=== PATIENT | female | born 1930 | race Caucasian/White ===

== ENCOUNTER 2017-06-26 04:34 | Emergency (ER) | payer MEDICARE, MEDICAID ==
[~2017-06-26] VITALS: Ht 152.4 cm; Wt 85.0 kg
[~2017-06-26 04:34] MED LIST: ADVAIR DISKU INH; ATEN25TA PO; ATOR80TA45 PO; FURO1TAB60 PO; GABA300C5 PO; IPRASOL INH; LANTUS2P SQ; NOVOLOGSS SQ; OMEP20TA93 PO; POTA10CA PO; SPIRCAP INH; VITA1000 PO
[2017-06-26 04:36] VITALS: BP 175/79; PULSE 100; RESP 16; TEMP 98.5; O2SAT 95
[2017-06-26] MEDS ORDERED: SODIUM CHLORID 0.9% 500 ML INJ 500 ML IV ONE (04:45)
[2017-06-26] MEDS ORDERED: SODIUM CHLORIDE 0.9% FLUSH 10 ML FLUSH IV FLUSH PRN (04:45)
[2017-06-26] MEDS ORDERED: ONDANSETRON HCL 4 MG/2 ML VIAL IVP ONE (04:45)
[2017-06-26] MEDS ORDERED: HYDR-3516 (04:56)
[2017-06-26] MEDS ORDERED: INSU1INJ14 SQ (04:56)
[2017-06-26] MEDS ORDERED: ALLO100T PO (04:56)
[2017-06-26] MEDS ORDERED: ATOR20TA15 PO (04:56)
[2017-06-26] MEDS ORDERED: NITR0.4S SL (04:56)
[2017-06-26] MEDS ORDERED: CONTOUR1 XX (04:56)
[2017-06-26] MEDS ORDERED: TEMA15CA PO (04:56)
[2017-06-26] MEDS ORDERED: VITA500L2 SL (04:56)
[2017-06-26] MEDS ORDERED: HYDR1SOL6 (04:56)
[2017-06-26] MEDS ORDERED: DOCU100C15 PO (04:56)
--- NOTE | 2017-06-26 05:03 | RADRPT ---
EXAM DATE/TIME: 06/26/2017 04:51 [facility] COMPARISON: No previous studies available for comparison. INDICATIONS : Pain in upper abdomen, free air. MEDICAL HISTORY : Cardiovascular disease. Renal failure, chronic. Diabetes mellitus type 2. SURGICAL HISTORY : Cholecystectomy. Appendectomy. ENCOUNTER: Initial ACUITY: 1 day PAIN SCORE: 0/10 LOCATION: Bilateral chest FINDINGS: A single portable erect view of the upper abdomen lower chest was performed. No evidence of free flu id. The visualized lower lungs are clear. Minor degenerative changes in the lumbar spine with right lower thoracic scoliosis. CONCLUSION: No evidence of free air. Lam Varma MD on June 26, 2017 at 5:01 Board Certified Radiologist. This report was verified electronically.
--- NOTE | 2017-06-26 05:15 | PD ---
HPI Chief Complaint: GI Complaint Time Seen by Provider: 04:38 Travel History International Travel<30 days: No Contact w/Intl Traveler<30days: No Traveled to known affect area: No History of Present Illness HPI Patient is an 87-year-old female with history of chronic kidney disease had been on dialysis in the past and then kidneys recovered spontaneously, presents emergency department tonight for evaluation of nausea and vomiting starting after she had dinner last night. States that her abdomen just feels queasy and cramping but not painful. Denies any chest pain or shortness of breath, denies any flank pain but does endorse vaginal discomfort as well as diarrhea. Denies any fevers, she states her symptoms are severe, no emesis during transportation by EMS, context as above, duration is above, associated signs symptoms as above. PFSH Past Medical History Anemia: Yes Arthritis: Yes Asthma: No Autoimmune Disease: No Blood Disorders: Yes (ANEMIA PER PT. ) Anxiety: No Depression: Yes Heart Rhythm Problems: Yes Cancer: No Cardiovascular Problems: Yes (AORTIC VALVE STENOSIS) High Cholesterol: Yes Chemotherapy: No Chest Pain: No Congestive Heart Failure: Yes COPD: Yes Cerebrovascular Accident: No Diabetes: Yes Patient Takes Glucophage: No Dialysis: Yes ([id number]) Diminished Hearing: No Endocrine: Yes Gastrointestinal Disorders: Yes GERD: Yes Glaucoma: No Gout: Yes Genitourinary: Yes Headaches: No Hepatitis: No Hiatal Hernia: No Hypertension: Yes Immune Disorder: No Implanted Vascular Access Dvce: Yes (AV FISTULA L ARM) Kidney Stones: No Musculoskeletal: Yes Neurologic: No Psychiatric: No Reproductive: No Respiratory: Yes Migraines: No Myocardial Infarction: No Radiation Therapy: No Renal Failure: Yes (ACUTE RENAL FAILURE, DAILYSIS 13MOS NOW OFF ) Seizures: No Sickle Cell Disease: No Sleep Apnea: No Thyroid Disease: No Ulcer: Yes (ULCERATIVE STOMACH ) : 4 Para: 3 Miscarriage: 1 Past Surgical History Abdominal Surgery: Yes (APPY, DEJON) AICD: No Appendectomy: Yes Cardiac Surgery: No Cholecystectomy: Yes Ear Surgery: No Endocrine Surgery: No Eye Surgery: Yes (BILATERAL CATARACTS, surgery to correct eye muscle) Genitourinary Surgery: No Gynecologic Surgery: No Insulin Pump: No Joint Replacement: Yes (RIGHT KNEE ) Oral Surgery: No Pacemaker: No Thoracic Surgery: No Other Surgery: Yes Social History Alcohol Use: No Tobacco Use: No Substance Use: No Allergies-Medications (Allergen,Severity, Reaction): Coded Allergies: azithromycin (Unverified Allergy, Severe, Hives, 06/26/17) erythromycin base (Unverified Allergy, Severe, HIVES, 06/26/17) prednisone (Unverified Allergy, Mild, HIVES, 06/26/17) aspirin (Unverified Allergy, Unknown, DECREASE PLATELETS, 06/26/17) diclofenac (Unverified Adverse Reaction, Severe, "LOW PLATELETS" = HIVES, 06/26/17) etodolac (Unverified Adverse Reaction, Severe, "LOW PLATELETS" = HIVES, ) flurbiprofen (Unverified Adverse Reaction, Severe, "LOW PLATELETS" = HIVES , 06/26/17) ibuprofen (Unverified Adverse Reaction, Severe, "LOW PLATELETS" = HIVES, 06/26/17) indomethacin (Unverified Adverse Reaction, Severe, "LOW PLATELETS" = HIVES , 06/26/17) ketoprofen (Unverified Adverse Reaction, Severe, "LOW PLATELETS" = HIVES, 06/26/17) ketorolac (Unverified Adverse Reaction, Severe, "LOW PLATELETS" = HIVES, 06/26/17) naproxen (Unverified Adverse Reaction, Severe, "LOW PLATELETS" = HIVES, ) oxaprozin (Unverified Adverse Reaction, Severe, "LOW PLATELETS" = HIVES, 06/26/17) Reported Meds & Prescriptions Reported Meds & Active Scripts Active Zofran Odt (Ondansetron Odt) 4 Mg Tab 4 Mg SL Q6HR PRN Novolog Inj (Insulin Aspart) 100 Unit/Ml Inj 1 Units SQ ACHS SLIDING SCALE 30 Days USE [place] medium dose sliding Reported Tresiba Flextouch Pen Inj (Insulin Degludec Inj) 300 unit/3 ML Pen 36 Units SQ BID Temazepam 15 Mg Cap 15 Mg PO HS PRN Nitrostat SL (Nitroglycerin) 0.4 Mg Subl 0.4 Mg SL DIRECTED PRN 1 tablet under the tongue as needed for chest pain. Repeat every 5 minutes for a total of 3 DOSES or call 911 if NO relief. Hydrocodone-Acetamin 5-325 mg (Hydrocodone/Acetaminophen) 5 Mg-325 Mg Tablet TID Docusate Sodium 100 Mg Cap 100 Mg PO BID Contour Blood Glucose Test Strip #100 (Blood Glucose Test Strips) Strp 1 Strip XX DIRECTED B-12 (Cyanocobalamin) 500 Mcg Subl 250 Mcg SL DAILY Allopurinol 100 Mg Tab 100 Mg PO DAILY Atorvastatin (Atorvastatin Calcium) 20 Mg Tab 20 Mg PO HS Potassium Chloride ER (Potassium Chloride) 10 Meq Cap 10 Meq PO DAILY Vitamin D-1000 (Cholecalciferol) 1,000 Unit Tab 1,000 Units PO DAILY Gabapentin 300 Mg Cap 300 Mg PO BID Omeprazole 20 Mg Tab 20 Mg PO BID Lasix (Furosemide) 40 Mg Tab 40 Mg PO BID Atenolol 25 Mg Tab 25 Mg PO DAILY Review of Systems Except as stated in HPI: all other systems reviewed are Neg Physical Exam Narrative GENERAL: Well-developed morbidly obese no obvious distress SKIN: Focused skin assessment warm/dry. HEAD: Atraumatic. Normocephalic. EYES: Pupils equal and round. No scleral icterus. No injection or drainage. ENT: No nasal bleeding or discharge. Mucous membranes pink and moist. NECK: Trachea midline. No JVD. CARDIOVASCULAR: Regular rate and rhythm. No murmur appreciated. RESPIRATORY: No accessory muscle use. Clear to auscultation. Breath sounds equal bilaterally. GASTROINTESTINAL: Abdomen soft, non-tender, nondistended. Hepatic and splenic margins not palpable. Tympanic to percussion, no rebound no percussive tenderness, no guarding. Anterior abdominal wall bruising secondary to insulin injections. MUSCULOSKELETAL: No obvious deformities. No clubbing. No cyanosis. No edema. NEUROLOGICAL: Awake and alert. No obvious cranial nerve deficits. Motor grossly within normal limits. Normal speech. PSYCHIATRIC: Appropriate mood and affect; insight and judgment normal. Data Data Last Documented VS Vital Signs Date Time Temp Pulse Resp B/P (MAP) Pulse Ox O2 Delivery O2 Flow Rate FiO2 06/26/17 04:36 98.5 100 16 175/79 (111) 95 Orders Orders Complete Blood Count With Diff (06/26/17 04:38) Comprehensive Metabolic Panel (06/26/17 04:38) Lipase (06/26/17 04:38) Urinalysis - C+S If Indicated (06/26/17 04:38) Iv Access Insert/Monitor (06/26/17 04:38) Ecg Monitoring (06/26/17 04:38) Oximetry (06/26/17 04:38) Ondansetron Inj (Zofran Inj) (06/26/17 04:45) Sodium Chloride 0.9% Flush (Ns Flush) (06/26/17 04:45) Abdomen, Upright Only (06/26/17 04:38) Sodium Chlorid 0.9% 500 Ml Inj (Ns 500 M (06/26/17 04:45) Ct Abd/Pel W/O Iv Contrast (06/26/17 ) Ed Discharge Order (06/26/17 07:04) Electrocardiogram (06/26/17 ) Labs Laboratory Tests Test 06/26/17 05:05 White Blood Count 9.2 TH/MM3 Red Blood Count 4.04 MIL/MM3 Hemoglobin 11.9 GM/DL Hematocrit 36.7 % Mean Corpuscular Volume 90.9 FL Mean Corpuscular Hemoglobin 29.5 PG Mean Corpuscular Hemoglobin Concent 32.5 % Red Cell Distribution Width 16.1 % Platelet Count 136 TH/MM3 Mean Platelet Volume 8.8 FL Neutrophils (%) (Auto) 90.2 % Lymphocytes (%) (Auto) 5.8 % Monocytes (%) (Auto) 3.6 % Eosinophils (%) (Auto) 0.2 % Basophils (%) (Auto) 0.2 % Neutrophils # (Auto) 8.3 TH/MM3 Lymphocytes # (Auto) 0.5 TH/MM3 Monocytes # (Auto) 0.3 TH/MM3 Eosinophils # (Auto) 0.0 TH/MM3 Basophils # (Auto) 0.0 TH/MM3 CBC Comment DIFF FINAL Differential Comment Blood Urea Nitrogen 26 MG/DL Creatinine 1.23 MG/DL Random Glucose 222 MG/DL Total Protein 6.9 GM/DL Albumin 3.2 GM/DL Calcium Level 8.3 MG/DL Alkaline Phosphatase 117 U/L Aspartate Amino Transf (AST/SGOT) 32 U/L Alanine Aminotransferase (ALT/SGPT) 24 U/L Total Bilirubin 0.4 MG/DL Sodium Level 141 MEQ/L Potassium Level 4.7 MEQ/L Chloride Level 103 MEQ/L Carbon Dioxide Level 30.9 MEQ/L Anion Gap 7 MEQ/L Estimat Glomerular Filtration Rate 41 ML/MIN Lipase 31 U/L MDM Medical Decision Making Medical Screen Exam Complete: Yes Emergency Medical Condition: Yes Differential Diagnosis Gastritis, gastroenteritis, electrolyte abnormality, dehydration, acute abdomen unlikely. Narrative Course Patient roomed in emergency department, appears comfortable, fairly benign abdomen but given her age and comorbidities CAT scan will be performed without IV contrast disabled kidney function. Several incidental findings found on CAT scan but nothing acute: Last 24 hours Impressions Abdomen X-Ray 06/26/17 0438 Signed Impressions: Service Date/Time: Monday, June 26, 2017 04:51 - CONCLUSION: No evidence of free air. Lam Varma MD Abdomen/Pelvis CT 06/26/17 0000 Signed Impressions: Service Date/Time: Monday, June 26, 2017 06:25 - CONCLUSION: 1. Several mildly enlarged retroperitoneal para-aortic lymph nodes. 2. 1 cm opacity in the anterior lower lateral left lung is incompletely included in the irehx-[id number] of the exam. Recommend CT thorax without contrast to further characterize this area and to evaluate for pulmonary opacities. Lam Varma MD Labs reassuring, creatinine is minimally elevated but appears to be a patient's baseline. She is feeling more comfortable after Zofran and fluids. Stable for discharge. Diagnosis Primary Impression: Nausea & vomiting Additional Impression: Diarrhea Additional Instructions: There were some lymph nodes present on your cat scan in the abdomen as well as a lung nodule. You should discuss these with your primary care provider within the next week or two. Med/Other Pt SpecificInfo: Prescription(s) given Scripts Ondansetron Odt (Zofran Odt) 4 Mg Tab 4 MG SL Q6HR Y for Nausea/Vomiting, #20 TAB 0 Refills Prov: Pete Rosen MD 06/26/17 Disposition: 01 DISCHARGE HOME Condition: Stable Pete Rosen MD Jun 26, 2017 05:15
[2017-06-26 05:19] LABS: AUTOMATED NEUTROPHIL # 8.3 TH/MM3 (1.8-7.7); BASOPHIL % 0.2 % (0.0-2.0); EOSINOPHIL % 0.2 % (0.0-4.0); HEMATOCRIT 36.7 % (35.0-46.0); HEMO FLAGS DIFF FINAL; LYMPH % 5.8 % (9.0-44.0); LYMPHOCYTE # 0.5 TH/MM3 (1.0-4.8); MEAN CELL VOLUME 90.9 FL (80.0-100.0); MEAN CORPUSCULAR HEMOGLOBIN 29.5 PG (27.0-34.0); MEAN CORPUSCULAR HGB CONC 32.5 % (32.0-36.0); MONO % 3.6 % (0.0-8.0); NEUT % 90.2 % (16.0-70.0); PLATELET COUNT 136 TH/MM3 (150-450); RED BLOOD COUNT 4.04 MIL/MM3 (4.00-5.30); RED CELL DISTRIBUTION WIDTH 16.1 % (11.6-17.2); WHITE BLOOD COUNT 9.2 TH/MM3 (4.0-11.0)
[2017-06-26 05:42] LABS: ANION GAP 7 MEQ/L (5-15); AST (GOT) 32 U/L (15-37); BICARBONATE 30.9 MEQ/L (21.0-32.0); BLOOD UREA NITROGEN 26 MG/DL (7-18); CHLORIDE 103 MEQ/L (98-107); GLOMERULAR FILTRATION RATE 41 ML/MIN (>89); POTASSIUM 4.7 MEQ/L (3.5-5.1); SODIUM (NA) 141 MEQ/L (136-145)
[2017-06-26 05:46] LABS: ALKALINE PHOSPHATASE 117 U/L (45-117); ALT (GPT) 24 U/L (10-53); TOTAL BILIRUBIN ADULT 0.4 MG/DL (0.2-1.0)
[2017-06-26] MEDS ORDERED: ZOFR4TAB3 SL (06:45)
--- NOTE | 2017-06-26 06:58 | RADRPT ---
EXAM DATE/TIME: 06/26/2017 06:25 [facility] COMPARISON: No previous studies available for comparison. INDICATIONS : Abdomen pain. ORAL CONTRAST: No oral contrast ingested. RADIATION DOSE: 15.68 CTDIvol (mGy) MEDICAL HISTORY : Cardiovascular disease. Renal failure, chronic. SURGICAL HISTORY : Cholecystectomy. Appendectomy. ENCOUNTER: Initial ACUITY: 1 day PAIN SCALE: 5/10 LOCATION: Bilateral abdomen. TECHNIQUE: Volumetric scanning of the abdomen and pelvis was performed. Using automated exposure control and ad justment of the mA and/or kV according to patient size, radiation dose was kept as low as reasonably achievable to obtain optimal diagnostic quality images. DICOM format image data is available electro nically for review and comparison. FINDINGS: LOWER LUNGS: There is a focal opacity in the anterior lower lateral left lung new pleural surface, partially inclu ded in the [id number] of the exam. Mild atelectasis in the costophrenic angles. LIVER: Homogeneous density without lesion for noncontrast technique. There is no dilation of the biliary tr ee. Cholecystectomy. SPLEEN: Normal size without lesion. PANCREAS: Diffuse fatty replacement. No peripancreatic fluid collections. KIDNEYS: Normal in size and shape. There is no mass, stone, or hydronephrosis. 1.7 cm cyst exophytic from th e upper pole of the right kidney. ADRENAL GLANDS: Within normal limits. VASCULAR: There is no aortic aneurysm. BOWEL/MESENTERY: No dilated loops of small or large bowel. ABDOMINAL WALL: Within normal limits. RETROPERITONEUM: Several mildly prominent periaortic lymph nodes measuring up to 1.6 cm in size. BLADDER: No wall thickening or mass. REPRODUCTIVE: Within normal limits. INGUINAL: There is no lymphadenopathy or hernia. MUSCULOSKELETAL: Diffuse degenerative changes of the vertebral endplates of the lower thoracic and lumbar spine. CONCLUSION: 1. Several mildly enlarged retroperitoneal para-aortic lymph nodes. 2. 1 cm opacity in the anterior lower lateral left lung is incompletely included in the [id number]-[id number] of the exam. Recommend CT thorax without contrast to further characterize this area and to evaluate for pulmonary opacities. Lam Varma MD on June 26, 2017 at 6:48 Board Certified Radiologist. This report was verified electronically.
--- NOTE | 2017-06-26 13:35 | EKG ---
Date Performed: 06/26/2017 Time Performed: 04:43:41 PTAGE: 87 years EKG: SINUS TACHYCARDIA MILD DIFFUSE ST DEPRESSION WHICH ARE SMILIAR TO THE PRIOR TRACING, CLINIC AL CORRELATION IS NEEDED. ABNORMAL ECG PREVIOUS TRACING : 06/19/2016 19.11 DOCTOR: Negro Ortega Interpretating Date/Time 06/26/2017 13:21:15
== END 2017-06-26 07:55 | disposition home or self-care (01) ==
LOC: NEPC 04:34
DX: R11.2 Nausea with vomiting, unspecified (principal); R19.7 Diarrhea, unspecified; D63.1 Anemia in chronic kidney disease; I12.9 Hypertensive chronic kidney disease with stage 1 through stage 4 chronic kidney disease, or unspecified chronic kidney disease; E11.22 Type 2 diabetes mellitus with diabetic chronic kidney disease; N18.9 Chronic kidney disease, unspecified; M10.9 Gout, unspecified; I13.0 Hypertensive heart and chronic kidney disease with heart failure and stage 1 through stage 4 chronic kidney disease, or unspecified chronic kidney disease; I50.9 Heart failure, unspecified
CPT/HCPCS: 74000; 74176; 80053; 83690; 85025; 93005; 96361; 96374; 99285; J2405; J7040

== ENCOUNTER 2017-07-26 18:14 | Inpatient (IN) | payer MEDICARE, MEDICAID ==
[~2017-07-26] VITALS: Ht 154.9 cm; Wt 81.9 kg
[~2017-07-26 18:14] MED LIST changes: -ADVAIR DISKU INH; +ALLO100T PO; +ATOR20TA15 PO; -ATOR80TA45 PO; +CONTOUR1 XX; +DOCU100C15 PO; +HYDR-3516 PO; +INSU1INJ14 SQ; -IPRASOL INH; -LANTUS2P SQ; +NITR0.4S SL; -SPIRCAP INH; +TEMA15CA PO; +VITA500L2 SL; +ZOFR4TAB3 SL
[2017-07-26 18:49] VITALS: BP 184/96; PULSE 91; RESP 32; TEMP 99.4; O2SAT 94
--- NOTE | 2017-07-26 19:24 | PD ---
HPI Chief Complaint: Respiratory Symptoms Time Seen by Provider: 18:48 Travel History International Travel<30 days: No Contact w/Intl Traveler<30days: No Traveled to known affect area: No History of Present Illness HPI Being [id number] female that presents to the ED for evaluation of shortness of breath and cold-like symptoms. Patient has a history of CHF and COPD. Per patient she lives an [facility] what there has been a lot of sick people. She's been having a lot of cough and congestion. Per patient she does not know if anybody has been diagnosed with the flu but she states that she did got her flu shot on March. Patient denies any chest pain. Per patient she has chronic pain but this has not changed. She states having some fevers and chills. Multiple allergies to different medications. Hasn't seen by anybody for this. Has not taken anything for this. Shortness of breath with exertion as well as laying down. She has a history of kidney failure having had dialysis but has been in remission since and has not had any dialysis in years. Per patient now she is able to urinate and has no issues with this. She states compliance with her medications at the [facility]. She denies any falls or injuries. No recent travel. PFSH Past Medical History Anemia: Yes Arthritis: Yes Asthma: No Autoimmune Disease: No Blood Disorders: Yes (ANEMIA PER PT. ) Anxiety: No Depression: Yes Heart Rhythm Problems: Yes Cancer: No Cardiovascular Problems: Yes (CHF ) High Cholesterol: Yes Chemotherapy: No Chest Pain: No Congestive Heart Failure: Yes COPD: Yes Cerebrovascular Accident: No Diabetes: Yes Patient Takes Glucophage: No Dialysis: Yes ([id number]) Diminished Hearing: No Endocrine: Yes Gastrointestinal Disorders: Yes GERD: Yes Glaucoma: No Gout: Yes Genitourinary: Yes Headaches: No Hepatitis: No Hiatal Hernia: No Hypertension: Yes Immune Disorder: No Implanted Vascular Access Dvce: Yes (AV FISTULA L ARM) Kidney Stones: No Musculoskeletal: Yes Neurologic: No Psychiatric: No Reproductive: No Respiratory: Yes (COPD ) Migraines: No Myocardial Infarction: No Radiation Therapy: No Renal Failure: Yes (ACUTE RENAL FAILURE, DAILYSIS 13MOS NOW OFF ) Seizures: No Sickle Cell Disease: No Sleep Apnea: No Thyroid Disease: No Ulcer: Yes (ULCERATIVE STOMACH ) Tetanus Vaccination: < 5 Years ?: Not Menopausal: Yes : 4 Para: 3 Miscarriage: 1 Past Surgical History Abdominal Surgery: Yes AICD: No Appendectomy: Yes Cardiac Surgery: No Cholecystectomy: Yes Ear Surgery: No Endocrine Surgery: No Eye Surgery: Yes (BILATERAL CATARACTS, surgery to correct eye muscle) Genitourinary Surgery: No Gynecologic Surgery: No Hysterectomy: Yes Insulin Pump: No Joint Replacement: Yes (RIGHT KNEE ) Oral Surgery: No Pacemaker: No Thoracic Surgery: No Other Surgery: Yes (L ARM SHUNT) Social History Alcohol Use: No Tobacco Use: No Substance Use: No Allergies-Medications (Allergen,Severity, Reaction): Coded Allergies: azithromycin (Unverified Allergy, Severe, Hives, 07/26/17) erythromycin base (Unverified Allergy, Severe, HIVES, 07/26/17) prednisone (Unverified Allergy, Mild, HIVES, 07/26/17) aspirin (Unverified Allergy, Unknown, DECREASE PLATELETS, 07/26/17) diclofenac (Unverified Adverse Reaction, Severe, "LOW PLATELETS" = HIVES, 07/26/17) etodolac (Unverified Adverse Reaction, Severe, "LOW PLATELETS" = HIVES, 06/02) flurbiprofen (Unverified Adverse Reaction, Severe, "LOW PLATELETS" = HIVES , 07/26/17) ibuprofen (Unverified Adverse Reaction, Severe, "LOW PLATELETS" = HIVES, ) indomethacin (Unverified Adverse Reaction, Severe, "LOW PLATELETS" = HIVES , 07/26/17) ketoprofen (Unverified Adverse Reaction, Severe, "LOW PLATELETS" = HIVES, 07/26/17) ketorolac (Unverified Adverse Reaction, Severe, "LOW PLATELETS" = HIVES, ) naproxen (Unverified Adverse Reaction, Severe, "LOW PLATELETS" = HIVES, 06/02) oxaprozin (Unverified Adverse Reaction, Severe, "LOW PLATELETS" = HIVES, ) Reported Meds & Prescriptions Reported Meds & Active Scripts Active Zofran Odt (Ondansetron Odt) 4 Mg Tab 4 Mg SL Q6HR PRN Novolog Inj (Insulin Aspart) 100 Unit/Ml Inj 1 Units SQ ACHS SLIDING SCALE 30 Days USE [place] medium dose sliding Reported Tresiba Flextouch Pen Inj (Insulin Degludec Inj) 300 unit/3 ML Pen 36 Units SQ DAILY Temazepam 15 Mg Cap 15 Mg PO HS PRN Nitrostat SL (Nitroglycerin) 0.4 Mg Subl 0.4 Mg SL DIRECTED PRN 1 tablet under the tongue as needed for chest pain. Repeat every 5 minutes for a total of 3 DOSES or call 911 if NO relief. Hydrocodone-Acetamin 5-325 mg (Hydrocodone/Acetaminophen) 5 Mg-325 Mg Tablet 1 Tab PO TID PRN Docusate Sodium 100 Mg Cap 100 Mg PO BID B-12 (Cyanocobalamin) 500 Mcg Subl 250 Mcg SL DAILY Allopurinol 100 Mg Tab 100 Mg PO DAILY Atorvastatin (Atorvastatin Calcium) 20 Mg Tab 20 Mg PO HS Potassium Chloride ER (Potassium Chloride) 10 Meq Cap 10 Meq PO DAILY Vitamin D-1000 (Cholecalciferol) 1,000 Unit Tab 1,000 Units PO DAILY Gabapentin 300 Mg Cap 300 Mg PO BID Omeprazole 20 Mg Tab 20 Mg PO BID Lasix (Furosemide) 40 Mg Tab 40 Mg PO BID Atenolol 25 Mg Tab 25 Mg PO DAILY Review of Systems Except as stated in HPI: all other systems reviewed are Neg Physical Exam Narrative GENERAL: SKIN: Warm and dry. HEAD: Atraumatic. Normocephalic. EYES: Pupils equal and round 4 mms reactive to light and accommodation. No scleral icterus. No injection or drainage. ENT: No nasal bleeding or discharge. Mucous membranes pink and moist. Tongue is midline. No uvula deviation. NECK: Trachea midline. No JVD. CARDIOVASCULAR: Regular rate and rhythm. No murmurs, S3, S4. RESPIRATORY: No accessory muscle use. Wheezings heard in all lung ward especially expiratory. Breath sounds equal bilaterally. GASTROINTESTINAL: Abdomen soft, non-tender, nondistended. Hepatic and splenic margins not palpable. MUSCULOSKELETAL: Extremities without clubbing, cyanosis, or edema. No obvious deformities. Full range of motion of the upper and lower extremities bilaterally. 2+ pulses bilaterally. NEUROLOGICAL: Awake and alert. No obvious cranial nerve deficits. Motor grossly within normal limits. Five out of 5 muscle strength in the arms and legs. Normal speech. PSYCHIATRIC: Appropriate mood and affect; insight and judgment normal. Data Data Last Documented VS Vital Signs Date Time Temp Pulse Resp B/P (MAP) Pulse Ox O2 Delivery O2 Flow Rate FiO2 07/26/17 21:13 94 16 174/71 (105) 98 Nasal Cannula 2.00 07/26/17 18:49 99.4 Orders Orders Electrocardiogram (07/26/17 18:55) Complete Blood Count With Diff (07/26/17 18:55) Comprehensive Metabolic Panel (07/26/17 18:55) B-Type Natriuretic Peptide (07/26/17 18:55) Prothrombin Time / Inr (Pt) (07/26/17 18:55) Act Partial Throm Time (Ptt) (07/26/17 18:55) Blood Culture (07/26/17 18:55) Magnesium (Mg) (07/26/17 18:55) Influenzae A/B Antigen (07/26/17 18:55) Chest, Single Ap (07/26/17 18:55) Iv Access Insert/Monitor (07/26/17 18:55) Ecg Monitoring (07/26/17 18:55) Oximetry (07/26/17 18:55) Albuterol-Ipratropium Neb (Duoneb Neb) (07/26/17 19:00) Levofloxacin 500 Mg Premix Inj (Levaquin (07/26/17 22:00) Admit Order (Ed Use Only) (07/26/17 21:57) Labs Laboratory Tests Test 07/26/17 19:40 White Blood Count 11.2 TH/MM3 Red Blood Count 3.78 MIL/MM3 Hemoglobin 11.1 GM/DL Hematocrit 34.1 % Mean Corpuscular Volume 90.2 FL Mean Corpuscular Hemoglobin 29.3 PG Mean Corpuscular Hemoglobin Concent 32.5 % Red Cell Distribution Width 16.1 % Platelet Count 134 TH/MM3 Mean Platelet Volume 8.8 FL Neutrophils (%) (Auto) 85.6 % Lymphocytes (%) (Auto) 7.4 % Monocytes (%) (Auto) 5.0 % Eosinophils (%) (Auto) 1.7 % Basophils (%) (Auto) 0.3 % Neutrophils # (Auto) 9.6 TH/MM3 Lymphocytes # (Auto) 0.8 TH/MM3 Monocytes # (Auto) 0.6 TH/MM3 Eosinophils # (Auto) 0.2 TH/MM3 Basophils # (Auto) 0.0 TH/MM3 CBC Comment DIFF FINAL Differential Comment Prothrombin Time 10.4 SEC Prothromb Time International Ratio 1.0 RATIO Activated Partial Thromboplast Time 26.0 SEC Blood Urea Nitrogen 16 MG/DL Creatinine 1.05 MG/DL Random Glucose 145 MG/DL Total Protein 6.7 GM/DL Albumin 3.1 GM/DL Calcium Level 8.5 MG/DL Magnesium Level 1.4 MG/DL Alkaline Phosphatase 123 U/L Aspartate Amino Transf (AST/SGOT) 21 U/L Alanine Aminotransferase (ALT/SGPT) 21 U/L Total Bilirubin 0.4 MG/DL Sodium Level 140 MEQ/L Potassium Level 4.6 MEQ/L Chloride Level 103 MEQ/L Carbon Dioxide Level 29.3 MEQ/L Anion Gap 8 MEQ/L Estimat Glomerular Filtration Rate 49 ML/MIN B-Type Natriuretic Peptide 226 PG/ML MDM Medical Decision Making Medical Screen Exam Complete: Yes Emergency Medical Condition: Yes Medical Record Reviewed: Yes Interpretation(s) CBC & BMP Diagram 07/26/17 19:40 Total Protein 6.7, Albumin 3.1 L, Calcium Level 8.5, Magnesium Level 1.4 L, Alkaline Phosphatase 123 H, Aspartate Amino Transf (AST/SGOT) 21, Alanine Aminotransferase (ALT/SGPT) 21, Total Bilirubin 0.4 BNP in the 200s Last Impressions Chest X-Ray 07/26/17 1855 Signed Impressions: Service Date/Time: July 19:16 - CONCLUSION: No evidence of acute cardiopulmonary disease. Stanton Erickson MD Differential Diagnosis CHF exacerbation versus COPD exacerbation versus COPD versus pneumonia versus influenza versus viral illness versus normal exam Narrative Course 87 year-old female that presents to the ED for evaluation of shortness of breath. Patient was properly examined and was found to have signs and symptoms concerning for COPD exacerbation versus CHF. Labs and imaging ordered. Labs and imaging showed no sign of acute disease. This appears to be COPD exacerbation with likely bronchitis. Patient still feels lousy. She still has a lot of wheezing on exam. Patient was recently prednisone so she was not given any steroids at this time. I discussed the case with Dr. Moran who has already evaluated the patient and agrees to admission from this for COPD Exacerbation. I discussed with him possible antibiotics and he agreed with Levaquin 500 mg IV. This was ordered. Patient agrees to admission. Case discussed with family who agree with admission. Procedures EKG Prior to Arrival: No Diagnosis Primary Impression: COPD (chronic obstructive pulmonary disease) Qualified Codes: J44.1 - Chronic obstructive pulmonary disease with (acute) exacerbation Admitting Information Admitting Physician Requests: Observation Obie Duke Jul 26, 2017 19:24
[2017-07-26] MEDS: RESP: ALBUTEROL 2.5 MG/IPRATROPIUM 0.5 MG NEB (SCH) INH (19:33)
--- NOTE | 2017-07-26 20:01 | RADRPT ---
EXAM DATE/TIME: 07/26/2017 19:16 [facility] COMPARISON: CHEST SINGLE AP, December 04, 2014, 11:47. INDICATIONS : Shortness of breath- Evaluate for pneumonia. MEDICAL HISTORY : Congestive heart failure. Chronic obstructive pulmonary disease. Hypercholesterolemia. Hypertensi on, Irregular heart beat. SURGICAL HISTORY : None. ENCOUNTER: Initial ACUITY: 3 days PAIN SCORE: 0/10 LOCATION: Bilateral chest FINDINGS: A single view of the chest demonstrates the lungs to be symmetrically aerated without evidence of mas s, infiltrate or effusion. The cardiomediastinal contours are unremarkable. Osseous structures are intact. CONCLUSION: No evidence of acute cardiopulmonary disease. Stanton Erickson MD on July 26, 2017 at 19:58 Board Certified Radiologist. This report was verified electronically.
[2017-07-26 21:13] VITALS: BP 174/71; PULSE 94; RESP 16; O2SAT 98
[2017-07-26 21:25] LABS: AUTOMATED NEUTROPHIL # 9.6 TH/MM3 (1.8-7.7); BASOPHIL % 0.3 % (0.0-2.0); EOSINOPHIL # 0.2 TH/MM3 (0-0.4); EOSINOPHIL % 1.7 % (0.0-4.0); HEMATOCRIT 34.1 % (35.0-46.0); HEMOGLOBIN 11.1 GM/DL (11.6-15.3); LYMPH % 7.4 % (9.0-44.0); LYMPHOCYTE # 0.8 TH/MM3 (1.0-4.8); MEAN CELL VOLUME 90.2 FL (80.0-100.0); MEAN CORPUSCULAR HEMOGLOBIN 29.3 PG (27.0-34.0); MEAN CORPUSCULAR HGB CONC 32.5 % (32.0-36.0); MEAN PLATELET VOLUME 8.8 FL (7.0-11.0); MONOCYTE # 0.6 TH/MM3 (0-0.9); NEUT % 85.6 % (16.0-70.0); PLATELET COUNT 134 TH/MM3 (150-450); RED BLOOD COUNT 3.78 MIL/MM3 (4.00-5.30); RED CELL DISTRIBUTION WIDTH 16.1 % (11.6-17.2); WHITE BLOOD COUNT 11.2 TH/MM3 (4.0-11.0)
[2017-07-26 21:38] LABS: PROTHROMBIN TIME - PATIENT 10.4 SEC (9.8-11.6)
[2017-07-26 21:42] LABS: ALBUMIN 3.1 GM/DL (3.4-5.0); AST (GOT) 21 U/L (15-37); BICARBONATE 29.3 MEQ/L (21.0-32.0); BLOOD UREA NITROGEN 16 MG/DL (7-18); CALCIUM 8.5 MG/DL (8.5-10.1); CHLORIDE 103 MEQ/L (98-107); CREATININE 1.05 MG/DL (0.50-1.00); GLOMERULAR FILTRATION RATE 49 ML/MIN (>89); GLUCOSE,RANDOM 145 MG/DL (74-106); MAGNESIUM 1.4 MG/DL (1.5-2.5); SODIUM (NA) 140 MEQ/L (136-145)
[2017-07-26 21:46] LABS: ALKALINE PHOSPHATASE 123 U/L (45-117); ALT (GPT) 21 U/L (10-53); TOTAL BILIRUBIN ADULT 0.4 MG/DL (0.2-1.0); TOTAL PROTEIN 6.7 GM/DL (6.4-8.2)
[2017-07-26] MEDS ORDERED: LEVOFLOXACIN 500 MG PREMIX INJ 100 ML IV ONE ×2 (22:00→22:45)
[2017-07-26] MEDS ORDERED: RESP: ALBUTEROL 2.5 MG/3 ML NEB (PRN) INH (22:00)
[2017-07-26] MEDS ORDERED: DEXTROSE 50% IN WATER 50 ML VIAL(D50) IV PUSH PRN (22:15)
[2017-07-26] MEDS ORDERED: GLUCAGON 1 MG/ML VIAL OTHER PRN (22:15)
--- NOTE | 2017-07-26 22:22 | HHI.HP ---
HPI Service [facility] Hospitalists Primary Care Physician Sonja Matthews MD Admission Diagnosis acute COPD exacerbation Chief Complaint: cough with phlegm production, dyspnea, wheeze Travel History International Travel<30 Days: No Contact w/Intl Traveler <30 Da: No Traveled to Known Affected Are: No History of Present Illness Pleasant 87 yo female with copd, DM, aortic stenosis and reported hx of CHF that presents to the ED for evaluation of shortness of breath and cold-like symptoms. Per patient she lives an [facility] what there has been a lot of sick people. 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 Per patient she does not know if anybody has been diagnosed with the flu but she states that she did got her flu shot in March 2017. Patient denies any chest pain. She states having some subjective fevers and chills (Tm 99.4). Hasn't seen by anybody for this, but came to ER after her niece advised her to do so as she was getting weaker and coughing more. Has not taken anything for this. Shortness of breath with exertion as well as while laying down. She has a history of kidney failure having had dialysis but has been in remission since 2008 and has not had any dialysis since that time. Per patient now she is able to urinate and has no issues with this. She states compliance with her medications at the [facility]. She denies any falls or injuries. No recent travel. No hemoptysis. Niece reports that phlegm has been yellow in color. Review of Systems Constitutional: COMPLAINS OF: Fatigue, Fever, Chills Ears, nose, mouth, throat: COMPLAINS OF: Hearing loss, DENIES: Tinnitus, Vertigo, Nasal discharge, Oral lesions, Throat pain, Hoarseness, Ear Pain, Running Nose, Epistaxis, Sinus Pain, Toothache, Odynophagia Respiratory: COMPLAINS OF: Cough, Wheezing, Sputum production, Shortness of breath, DENIES: Apneas, Snoring, Hemoptysis Cardiovascular: COMPLAINS OF: Dyspnea on Exertion, Lower Extremity Edema, DENIES: Chest pain, Palpitations, Syncope, PND, Orthopnea, Claudication Gastrointestinal: COMPLAINS OF: GERD, DENIES: Abdominal pain, Black stools, Bloody stools, BRB per rectum, Constipation, Diarrhea, Nausea, Reflux, Vomiting , Difficulty Swallowing, Anorexia, See HPI Musculoskeletal: COMPLAINS OF: Joint pain, Back pain Hematologic/lymphatic: DENIES: Bruising, Lymphadenopathy Immunologic/allergic: DENIES: Eczema, Urticaria Neurologic: COMPLAINS OF: Abnormal gait, Poor Balance Psychiatric: COMPLAINS OF: Anxiety Past Family Social History Past Medical History Aortic stenosis CHF COPD HTN Hyperlipidemia DM 2 nephropathy CKD3 obesity Gout GERD Hx of ARF requiring dialysis Past Surgical History Heart cath in 2007, reportedly normal vessels LUE AV fistula CAtaract surgery [facility] Left TKA Reported Medications Zofran Odt (Ondansetron Odt) 4 Mg Tab 4 Mg SL Q6HR PRN Novolog Inj (Insulin Aspart) 100 Unit/Ml Inj 1 Units SQ ACHS SLIDING SCALE 30 Days Tresiba Flextouch Pen Inj (Insulin Degludec Inj) 300 unit/3 ML Pen 36 Units SQ DAILY Temazepam 15 Mg Cap 15 Mg PO HS PRN Nitrostat SL (Nitroglycerin) 0.4 Mg Subl 0.4 Mg SL DIRECTED PRN 1 tablet under the tongue as needed for chest pain. Repeat every 5 minutes for a total of 3 DOSES or call 911 if NO relief. Hydrocodone-Acetamin 5-325 mg (Hydrocodone/Acetaminophen) 5 Mg-325 Mg Tablet 1 Tab PO TID PRN Docusate Sodium 100 Mg Cap 100 Mg PO BID B-12 (Cyanocobalamin) 500 Mcg Subl 250 Mcg SL DAILY Allopurinol 100 Mg Tab 100 Mg PO DAILY Atorvastatin (Atorvastatin Calcium) 20 Mg Tab 20 Mg PO HS Potassium Chloride ER (Potassium Chloride) 10 Meq Cap 10 Meq PO DAILY Vitamin D-1000 (Cholecalciferol) 1,000 Unit Tab 1,000 Units PO DAILY Gabapentin 300 Mg Cap 300 Mg PO BID Omeprazole 20 Mg Tab 20 Mg PO BID Lasix (Furosemide) 40 Mg Tab 40 Mg PO BID Atenolol 25 Mg Tab 25 Mg PO RAYMOND Allergies: Coded Allergies: azithromycin (Unverified Allergy, Severe, Hives, 07/26/17) erythromycin base (Unverified Allergy, Severe, HIVES, 07/26/17) prednisone (Unverified Allergy, Mild, HIVES, 07/26/17) aspirin (Unverified Allergy, Unknown, DECREASE PLATELETS, 07/26/17) diclofenac (Unverified Adverse Reaction, Severe, "LOW PLATELETS" = HIVES, 07/26/17) etodolac (Unverified Adverse Reaction, Severe, "LOW PLATELETS" = HIVES, 06/02) flurbiprofen (Unverified Adverse Reaction, Severe, "LOW PLATELETS" = HIVES , 07/26/17) ibuprofen (Unverified Adverse Reaction, Severe, "LOW PLATELETS" = HIVES, ) indomethacin (Unverified Adverse Reaction, Severe, "LOW PLATELETS" = HIVES , 07/26/17) ketoprofen (Unverified Adverse Reaction, Severe, "LOW PLATELETS" = HIVES, 07/26/17) ketorolac (Unverified Adverse Reaction, Severe, "LOW PLATELETS" = HIVES, ) naproxen (Unverified Adverse Reaction, Severe, "LOW PLATELETS" = HIVES, 06/02) oxaprozin (Unverified Adverse Reaction, Severe, "LOW PLATELETS" = HIVES, ) Family History nc Social History No tobacco or EtOH use, although review of old records indicates that she may have smoked periodically for a few yrs over 30 yrs ago. Lives in [facility] last 2 yrs. Originally from [facility] where she worked at an [employer], moved here in early . twice Had 3 children, but all have . Member of [facility] [facility], Conf[employer] Physical Exam Vital Signs Vital Signs Date Time Temp Pulse Resp B/P (MAP) Pulse Ox O2 Delivery O2 Flow Rate FiO2 07/26/17 21:13 94 16 174/71 (105) 98 Nasal Cannula 2.00 07/26/17 18:55 94 Room Air 07/26/17 18:49 99.4 91 32 184/96 (125) 94 Physical Exam GEN: WD, WN, elderly female, NAD, a/o. SKIN: somewhat xerotic HEAD: Atraumatic. Normocephalic. No temporal or scalp tenderness. EYES: Pupils equal round and reactive. Extraocular motions intact. No scleral icterus. No injection or drainage. ENT: Nose without bleeding, purulent drainage or septal hematoma. Airway patent. NECK: Trachea midline. No JVD or lymphadenopathy. Supple, nontender, no meningeal signs. CARDIOVASCULAR: distant heart sounds, RRR, 2/6 ELIAS in aortic space without gallops, or rubs. RESPIRATORY: course rhonchi bilat bases, fair air movement, no fine crackles or wheeze on exam GASTROINTESTINAL: Abdomen soft, non-tender, nondistended. No hepato-splenomegaly , or palpable masses. No guarding. MUSCULOSKELETAL: Extremities without clubbing, cyanosis. trace edema bilat feet. No joint tenderness, effusion, or edema noted. No calf tenderness. NEUROLOGICAL: Awake and alert. Cranial nerves II through XII intact. Motor and sensory grossly within normal limits. Five out of 5 muscle strength in all muscle groups. Normal speech. Laboratory Laboratory Tests Test 07/26/17 19:40 White Blood Count 11.2 Red Blood Count 3.78 Hemoglobin 11.1 Hematocrit 34.1 Mean Corpuscular Volume 90.2 Mean Corpuscular Hemoglobin 29.3 Mean Corpuscular Hemoglobin Concent 32.5 Red Cell Distribution Width 16.1 Platelet Count 134 Mean Platelet Volume 8.8 Neutrophils (%) (Auto) 85.6 Lymphocytes (%) (Auto) 7.4 Monocytes (%) (Auto) 5.0 Eosinophils (%) (Auto) 1.7 Basophils (%) (Auto) 0.3 Neutrophils # (Auto) 9.6 Lymphocytes # (Auto) 0.8 Monocytes # (Auto) 0.6 Eosinophils # (Auto) 0.2 Basophils # (Auto) 0.0 CBC Comment DIFF FINAL Differential Comment Prothrombin Time 10.4 Prothromb Time International Ratio 1.0 Activated Partial Thromboplast Time 26.0 Blood Urea Nitrogen 16 Creatinine 1.05 Random Glucose 145 Total Protein 6.7 Albumin 3.1 Calcium Level 8.5 Magnesium Level 1.4 Alkaline Phosphatase 123 Aspartate Amino Transf (AST/SGOT) 21 Alanine Aminotransferase (ALT/SGPT) 21 Total Bilirubin 0.4 Sodium Level 140 Potassium Level 4.6 Chloride Level 103 Carbon Dioxide Level 29.3 Anion Gap 8 Estimat Glomerular Filtration Rate 49 B-Type Natriuretic Peptide 226 Date/Time Source Procedure Growth Status 07/26/17 19:40 Blood Peripheral Aerobic Blood Culture Pending Received 07/26/17 19:40 Blood Peripheral Anaerobic Blood Culture Pending Received Result Diagram: 07/26/17193907/26/171939 Imaging Last 72 hours Impressions Chest X-Ray 07/26/17 [id number] Signed Impressions: Service Date/Time: July 19:16 - CONCLUSION: No evidence of acute cardiopulmonary disease. MD Linwood Snell VTE Risk Assessment Caprini VTE Risk Assessment: Mod/High Risk (score >= 2) Caprini Risk Assessment Model Point Value = 1 Point Value = 2 Point Value = 3 Point Value = 5 Age 41-60 Minor surgery BMI > 25 kg/m2 Swollen legs Varicose veins or History of unexplained or recurrent spontaneous Oral contraceptives or hormone replacement Sepsis (< 1 month) Serious lung disease, including pneumonia (< 1 month) Abnormal pulmonary function Acute myocardial infarction Congestive heart failure (< 1 month) History of inflammatory bowel disease Medical patient at bed rest Age 61-74 Arthroscopic surgery Major open surgery (> 45 min) Laparoscopic surgery (> 45 min) Malignancy Confined to bed (> 72 hours) Immobilizing plaster cast Central venous access Age >= 75 History of VTE Family history of VTE Factor V Leiden Prothrombin [id number] Lupus anticoagulant Anticardiolipin antibodies Elevated serum homocysteine Heparin-induced thrombocytopenia Other congenital or acquired thrombophilia Stroke (< 1 month) Elective arthroplasty Hip, pelvis, or leg fracture Acute spinal cord injury (< 1 month) Prophylaxis Regimen Total Risk Factor Score Risk Level Prophylaxis Regimen 0-1 Low Early ambulation 2 Moderate Order ONE of the following: *Sequential Compression Device (SCD) *Heparin 5000 units SQ BID 3-4 Higher Order ONE of the following medications: *Heparin 5000 units SQ TID *Enoxaparin/Lovenox 40 mg SQ daily (WT < 150 kg, CrCl > 30 mL/min) *Enoxaparin/Lovenox 30 mg SQ daily (WT < 150 kg, CrCl > 10-29 mL/min) *Enoxaparin/Lovenox 30 mg SQ BID (WT < 150 kg, CrCl > 30 mL/min) AND/OR *Sequential Compression Device (SCD) 5 or more Highest Order ONE of the following medications: *Heparin 5000 units SQ TID (Preferred with Epidurals) *Enoxaparin/Lovenox 40 mg SQ daily (WT < 150 kg, CrCl > 30 mL/min) *Enoxaparin/Lovenox 30 mg SQ daily (WT < 150 kg, CrCl > 10-29 mL/min) *Enoxaparin/Lovenox 30 mg SQ BID (WT < 150 kg, CrCl > 30 mL/min) AND *Sequential Compression Device (SCD) Assessment and Plan Problem List: (1) COPD (chronic obstructive pulmonary disease) with acute bronchitis ICD Codes: J44.0 - Chronic obstructive pulmonary disease with acute lower respiratory infection; J20.9 - Acute bronchitis, unspecified Status: Acute Plan: continue nebs, abx, supplemental oxygen. Hold off on steroids for now due to ? rash with prednisone. Would try solumedrol or Decadron if wheezing occurs. (2) CHF (congestive heart failure) ICD Codes: I50.9 - Heart failure, unspecified Status: Chronic Plan: no overt failure on exam. BNP relatively low. continue meds. (3) Diabetes ICD Codes: E11.9 - Type 2 diabetes mellitus without complications Status: Chronic Plan: accucheck with SSI (4) HTN (hypertension) ICD Codes: I10 - Essential (primary) hypertension Status: Chronic Plan: continue rx (5) GERD (gastroesophageal reflux disease) ICD Codes: K21.9 - Gastro-esophageal reflux disease without esophagitis Status: Chronic Plan: ppi Code Status DNR Discussed Condition With ER provider, pt, her niece and [id number] Problem Qualifiers (1) CHF (congestive heart failure): (2) Diabetes: Qualified Codes: E11.21 - Type 2 diabetes mellitus with diabetic nephropathy; Z79.4 - FCI (current) use of insulin (3) HTN (hypertension): Qualified Codes: I10 - Essential (primary) hypertension Irineo Moran MD PhD Jul 26, 2017 22:22
[2017-07-26] MEDS ORDERED: PILL SPLITTER OTHER PRN (22:30)
[2017-07-27] VITALS (8 sets, daily range): BP systolic 130–175; BP diastolic 62–74; PULSE 72–88; RESP 18–22; TEMP 97–98.8; O2SAT 96–99
[2017-07-27] MEDS: RESP: ALBUTEROL 2.5 MG/IPRATROPIUM 0.5 MG NEB (SCH) INH ×6 (00:37→20:09)
[2017-07-27] MEDS: MAGNESIUM OXIDE 400 MG TAB PO SCH ×3 (01:26→20:55)
[2017-07-27] MEDS: ACETAMINOPHEN/HYDROcodone 325 MG/5 MG TAB PO PRN ×3 (02:03→22:36)
[2017-07-27] MEDS: TEMAZEPAM 15 MG CAP PO PRN (02:03)
[2017-07-27] MEDS: INSULIN ASPART SUPPLEMENTAL SCALE SQ SCH ×4 (08:00→20:52)
[2017-07-27] MEDS ORDERED: methylPREDNISolone SOD SUCC 125 MG/2 ML VIAL IV PUSH SCH (08:15)
--- NOTE | 2017-07-27 08:31 | HHI.PR ---
Subjective Remarks Pt reports that she feels about the same today as she did prior to admission She has noted some wheezing this morning Pt refused the overnight nebulizer treatment She feels very congested Afebrile Pt states that she had previously reported having hives with steroids but she now states that it was from a Z-bia. She wants to try some IV steroids since she started having wheezing today. Objective Vitals Vital Signs Date Time Temp Pulse Resp B/P (MAP) Pulse Ox O2 Delivery O2 Flow Rate FiO2 07/27/17 05:39 98.2 76 20 130/62 (84) 96 07/27/17 02:36 18 07/27/17 01:22 98.3 88 22 137/63 (87) 98 07/27/17 00:30 99 Nasal Cannula 3.00 07/26/17 21:13 94 16 174/71 (105) 98 Nasal Cannula 2.00 07/26/17 18:55 94 Room Air 07/26/17 18:49 99.4 91 32 184/96 (125) 94 Result Diagram: 07/26/17193907/26/171939 Other Results Laboratory Tests Test 07/26/17 19:40 07/27/17 05:40 White Blood Count 11.2 TH/MM3 Red Blood Count 3.78 MIL/MM3 Hemoglobin 11.1 GM/DL Hematocrit 34.1 % Mean Corpuscular Volume 90.2 FL Mean Corpuscular Hemoglobin 29.3 PG Mean Corpuscular Hemoglobin Concent 32.5 % Red Cell Distribution Width 16.1 % Platelet Count 134 TH/MM3 Mean Platelet Volume 8.8 FL Neutrophils (%) (Auto) 85.6 % Lymphocytes (%) (Auto) 7.4 % Monocytes (%) (Auto) 5.0 % Eosinophils (%) (Auto) 1.7 % Basophils (%) (Auto) 0.3 % Neutrophils # (Auto) 9.6 TH/MM3 Lymphocytes # (Auto) 0.8 TH/MM3 Monocytes # (Auto) 0.6 TH/MM3 Eosinophils # (Auto) 0.2 TH/MM3 Basophils # (Auto) 0.0 TH/MM3 CBC Comment DIFF FINAL Differential Comment Prothrombin Time 10.4 SEC Prothromb Time International Ratio 1.0 RATIO Activated Partial Thromboplast Time 26.0 SEC Blood Urea Nitrogen 16 MG/DL Creatinine 1.05 MG/DL Random Glucose 145 MG/DL Total Protein 6.7 GM/DL Albumin 3.1 GM/DL Calcium Level 8.5 MG/DL Magnesium Level 1.4 MG/DL 1.5 MG/DL Alkaline Phosphatase 123 U/L Aspartate Amino Transf (AST/SGOT) 21 U/L Alanine Aminotransferase (ALT/SGPT) 21 U/L Total Bilirubin 0.4 MG/DL Sodium Level 140 MEQ/L Potassium Level 4.6 MEQ/L Chloride Level 103 MEQ/L Carbon Dioxide Level 29.3 MEQ/L Anion Gap 8 MEQ/L Estimat Glomerular Filtration Rate 49 ML/MIN B-Type Natriuretic Peptide 226 PG/ML Imaging Last 72 hours Impressions Chest X-Ray 07/26/17 [id number] Signed Impressions: Service Date/Time: , July 26, 2017 19:16 - CONCLUSION: No evidence of acute cardiopulmonary disease. Stanton rEickson MD Objective Remarks General: NAD, AAOx3 Chest: Expiratory wheeze bilaterally, coarse breath sounds with coughing Cardiac: Regular Abd: +BS, soft ND/NT Ext: No edema A/P Problem List: (1) COPD (chronic obstructive pulmonary disease) with acute bronchitis ICD Codes: J44.0 - Chronic obstructive pulmonary disease with acute lower respiratory infection; J20.9 - Acute bronchitis, unspecified Status: Acute Plan: COPD with acute bronchitis - Pt is an 87 y/o female with COPD, chronic diastolic CHF, HTN, severe aortic stenosis, diabetes, and CKD. - She presented to the ED on 07/26/17 with complaints of productive cough and SOB x 3 days. Pt lives at a local [facility] and reports that many residents have been ill recently. - Pt has a hx of COPD and in the past has been on Advair and Spiriva but has not taken these for quite some time. - CXR in the ED showed nothing acute. - Cont. Duonebs, change to Q4H WA as pt refusing night time nebs. - Pt was started on Levaquin IV at admission. - Add Mucinex 600mg po BID and Claritin 10mg po daily - Supplemental oxygen as needed. - Pt with some wheezing this morning. She wants to try some IV steroids to see if this may help. Pt had a possible reaction to PO steroids previously but now states that she had hives with a Z-bia and NOT to steroids. - Start Solu-medrol 60mg BID and if tolerating can increase frequency. - Of note, in 06/2017 pt was seen in the ED with gastroenteritis and had a CT Abd/pelvis which subsequently noted several mildly enlarged retroperitoneal para-aortic LN and a 1cm opacity in the anterior lower lateral left lung. CT thorax was recommended as an outpt. - We will proceed with CT Thorax now - Supportive care - DVT prophylaxis with SCDs Chronic diastolic CHF - No overt signs of failure on exam. - BNP relatively low. - Continue home meds. Diabetes Mellitus - NovoLog SSI - Accu checks - Pt also takes Tresiba 36units daily at home - Will need to monitor for steroid hyperglycemia while on Solu-medrol HTN - Home meds continued, Atenolol 25mg po daily GERD - PPI (2) CHF (congestive heart failure) ICD Codes: I50.9 - Heart failure, unspecified Status: Chronic (3) Diabetes ICD Codes: E11.9 - Type 2 diabetes mellitus without complications Status: Chronic (4) HTN (hypertension) ICD Codes: I10 - Essential (primary) hypertension Status: Chronic (5) GERD (gastroesophageal reflux disease) ICD Codes: K21.9 - Gastro-esophageal reflux disease without esophagitis Status: Chronic Assessment and Plan Patient examined. Assessment and plan formulated with Sindhu Mckeon PA-C. I agree with the above. copd exacerbation. acute bronchitis f/u CT. cont nebs/abx/solumedrol Problem Qualifiers (1) CHF (congestive heart failure): (2) Diabetes: Qualified Codes: E11.21 - Type 2 diabetes mellitus with diabetic nephropathy; Z79.4 - longterm (current) use of insulin (3) HTN (hypertension): Qualified Codes: I10 - Essential (primary) hypertension Sindhu Mckeon Jul 27, 2017 08:30 Derrek Maguire MD Jul 27, 2017 13:55 Yves Corona DO Jul 30, 2017 22:16
[2017-07-27] MEDS ORDERED: CYANOCOBALAMIN 250 MCG SL SCH (09:00)
[2017-07-27] MEDS: POTASSIUM CHLORIDE 10 MEQ CAP PO SCH (09:00)
[2017-07-27] MEDS ORDERED: NON-FORMULARY DRUG (Omeprazole 20 MG) PO SCH (09:00)
[2017-07-27] MEDS: PANTOPRAZOLE SOD 20 MG DELAYED RELEASE TAB PO SCH ×2 (09:59→20:53)
[2017-07-27] MEDS: FUROSEMIDE 40 MG TAB PO SCH ×2 (10:00→20:54)
[2017-07-27] MEDS: LORATADINE 10 MG TAB PO SCH (10:00)
[2017-07-27] MEDS: DOCUSATE SODIUM 100 MG CAP PO SCH ×2 (10:00→21:00)
[2017-07-27] MEDS: guaiFENesin E.R. 600 MG TAB PO SCH ×2 (10:00→20:53)
[2017-07-27] MEDS: ALLOPURINOL 100 MG TAB PO SCH (10:01)
[2017-07-27] MEDS: SODIUM CHLORIDE 0.9% FLUSH 10 ML FLUSH IV FLUSH SCH ×2 (10:01→22:45)
[2017-07-27] MEDS: GABAPENTIN 300 MG CAP PO SCH ×2 (10:01→20:53)
[2017-07-27] MEDS: methylPREDNISolone SOD SUCC 125 MG/2 ML VIAL IV PUSH SCH ×2 (10:02→20:53)
[2017-07-27] MEDS: ATENOLOL 25 MG TAB PO SCH (10:07)
[2017-07-27] MEDS: CYANOCOBALAMIN 100 MCG TAB PO SCH (10:33)
--- NOTE | 2017-07-27 11:09 | RADRPT ---
EXAM DATE/TIME: 07/27/2017 10:43 [facility] COMPARISON: CT ABDOMEN & PELVIS W/O CONTRAST, June 26, 2017, 6:25. INDICATIONS : Short of breath and abnormal chest xray. RADIATION DOSE: 5.78 CTDIvol (mGy) MEDICAL HISTORY : Hypertension. Cardiovascular disease Gastroesophageal reflux disease. SURGICAL HISTORY : Hysterectomy. Cholecystectomy.Appendectomy. ENCOUNTER: Initial ACUITY: 2 days PAIN SCALE: 2/10 LOCATION: chest TECHNIQUE: Volumetric scanning of the chest was performed. Using automated exposure control and adjustment of t he mA and/or kV according to patient size, radiation dose was kept as low as reasonably achievable to obtain optimal diagnostic quality images. DICOM format image data is available electronically for r eview and comparison. Follow-up recommendations for detected pulmonary nodules are based at a minimum on nodule size and pa tient risk factors according to Fleischner Society Guidelines. FINDINGS: Minimal parenchymal changes are seen in the lingula. Lungs otherwise clear. There is no axillary adenopathy. There is no mediastinal adenopathy. Moderate coronary calcifications are noted particularly in the LAD. There is no pericardial effusion Portable liver is identified free of focal defects Extensive degenerative changes are seen in the thoracic spine. CONCLUSION: Minimal stable changes lingula. Peribronchial thickening Hero Stringer MD FACR on July 27, 2017 at 11:04 Board Certified Radiologist. This report was verified electronically.
--- NOTE | 2017-07-27 16:30 | EKG ---
Date Performed: 07/26/2017 Time Performed: 19:33:16 PTAGE: 87 years EKG: Sinus rhythm MODERATE ST DEPRESSION ABNORMAL ECG PREVIOUS TRACING : 06/26/2017 04.43 Since previous tracing, no significant change noted DOCTOR: Navneet Hernandez Interpretating Date/Time 07/27/2017 16:29:01
[2017-07-27] MEDS: ATORVASTATIN 20 MG TAB PO SCH (20:54)
[2017-07-27] MEDS: LEVOFLOXACIN/DEXTROSE 250 MG/50 ML IV SCH (22:45)
[2017-07-28] VITALS (10 sets, daily range): BP systolic 143–164; BP diastolic 66–82; PULSE 69–88; RESP 16–20; TEMP 98.1–98.6; O2SAT 97–100
[2017-07-28] MEDS: RESP: ALBUTEROL 2.5 MG/IPRATROPIUM 0.5 MG NEB (SCH) INH ×4 (07:26→19:48)
[2017-07-28] MEDS: INSULIN ASPART SUPPLEMENTAL SCALE SQ SCH ×4 (08:00→22:06)
[2017-07-28] MEDS: RESP: BUDESONIDE 0.5 MG/2 ML NEB NEB SCH (08:45)
--- NOTE | 2017-07-28 08:57 | HHI.PR ---
Subjective Remarks Pt reports that she had some chest tightness last night that improved after the breathing treatment Her BG has been elevated with the IV solu-medrol Pt does not feel that she is much better today than yesterday She tolerated the steroids without any rash noted Objective Vitals Vital Signs Date Time Temp Pulse Resp B/P (MAP) Pulse Ox O2 Delivery O2 Flow Rate FiO2 07/28/17 07:27 99 Nasal Cannula 2.00 07/28/17 03:42 98.1 69 16 143/67 (92) 100 07/28/17 00:04 98.3 76 16 164/72 (102) 98 07/28/17 00:00 Nasal Cannula 3.00 07/27/17 22:10 98.5 72 18 175/74 (107) 96 07/27/17 16:00 98.8 75 18 164/74 (104) 97 07/27/17 12:00 97.2 78 18 161/67 (98) 97 07/27/17 09:45 96 Nasal Cannula 2.00 Result Diagram: 07/26/17193907/26/171939 Other Results Laboratory Tests Test 07/26/17 19:40 07/27/17 05:40 White Blood Count 11.2 TH/MM3 Red Blood Count 3.78 MIL/MM3 Hemoglobin 11.1 GM/DL Hematocrit 34.1 % Mean Corpuscular Volume 90.2 FL Mean Corpuscular Hemoglobin 29.3 PG Mean Corpuscular Hemoglobin Concent 32.5 % Red Cell Distribution Width 16.1 % Platelet Count 134 TH/MM3 Mean Platelet Volume 8.8 FL Neutrophils (%) (Auto) 85.6 % Lymphocytes (%) (Auto) 7.4 % Monocytes (%) (Auto) 5.0 % Eosinophils (%) (Auto) 1.7 % Basophils (%) (Auto) 0.3 % Neutrophils # (Auto) 9.6 TH/MM3 Lymphocytes # (Auto) 0.8 TH/MM3 Monocytes # (Auto) 0.6 TH/MM3 Eosinophils # (Auto) 0.2 TH/MM3 Basophils # (Auto) 0.0 TH/MM3 CBC Comment DIFF FINAL Differential Comment Prothrombin Time 10.4 SEC Prothromb Time International Ratio 1.0 RATIO Activated Partial Thromboplast Time 26.0 SEC Blood Urea Nitrogen 16 MG/DL Creatinine 1.05 MG/DL Random Glucose 145 MG/DL Total Protein 6.7 GM/DL Albumin 3.1 GM/DL Calcium Level 8.5 MG/DL Magnesium Level 1.4 MG/DL 1.5 MG/DL Alkaline Phosphatase 123 U/L Aspartate Amino Transf (AST/SGOT) 21 U/L Alanine Aminotransferase (ALT/SGPT) 21 U/L Total Bilirubin 0.4 MG/DL Sodium Level 140 MEQ/L Potassium Level 4.6 MEQ/L Chloride Level 103 MEQ/L Carbon Dioxide Level 29.3 MEQ/L Anion Gap 8 MEQ/L Estimat Glomerular Filtration Rate 49 ML/MIN B-Type Natriuretic Peptide 226 PG/ML Imaging Last Impressions Chest CT 07/27/17 0000 Signed Impressions: Service Date/Time: Thursday, July 27, 2017 10:43 - CONCLUSION: Minimal stable changes lingula. Peribronchial thickening Hero Stringer MD FACR Chest X-Ray 07/26/17 1855 Signed Impressions: Service Date/Time: July 19:16 - CONCLUSION: No evidence of acute cardiopulmonary disease. Stanton Erickson MD Objective Remarks General: NAD, AAOx3 Chest: Expiratory wheeze bilaterally, coarse breath sounds with coughing Cardiac: Regular Abd: +BS, soft ND/NT Ext: No edema A/P Problem List: (1) COPD (chronic obstructive pulmonary disease) with acute bronchitis ICD Codes: J44.0 - Chronic obstructive pulmonary disease with acute lower respiratory infection; J20.9 - Acute bronchitis, unspecified Status: Acute Plan: COPD with acute bronchitis - Pt is an 87 y/o female with COPD, chronic diastolic CHF, HTN, severe aortic stenosis, diabetes, and CKD. - She presented to the ED on 07/26/17 with complaints of productive cough and SOB x 3 days. Pt lives at a local [facility] and reports that many residents have been ill recently. - Pt has a hx of COPD and in the past has been on Advair and Spiriva but has not taken these for quite some time. - CXR in the ED showed nothing acute. - Pt was started on Levaquin IV at admission and this has been continued. - Cont. Mucinex 600mg po BID and Claritin 10mg po daily - Supplemental oxygen as needed. - Pt with some wheezing this morning. She wants to try some IV steroids to see if this may help. Pt had a possible reaction to PO steroids previously but now states that she had hives with a Z-bia and NOT to steroids. - Solu-medrol was started at 60mg BID and she tolerated this well. We will increase to 60mg Q6H on 07/28. - Change Duonebs to Q4H around the clock - Add Budesonide nebs BID - Of note, in 06/2017 pt was seen in the ED with gastroenteritis and had a CT Abd/pelvis which subsequently noted several mildly enlarged retroperitoneal para-aortic LN and a 1cm opacity in the anterior lower lateral left lung. CT thorax was recommended as an outpt. - CT Thorax (07/27/17) --> Minimal stable changes lingula. Peribronchial thickening. - Supportive care - DVT prophylaxis with SCDs Chronic diastolic CHF - No overt signs of failure on exam. - BNP relatively low. - Continue home meds, pt takes Lasix 40mg once daily Diabetes Mellitus - NovoLog SSI - Accu checks - Pt also takes Tresiba 36units daily at home - Add Levemir 10units BID and monitor BS levels HTN - Home meds continued, Atenolol 25mg po daily GERD - PPI (2) CHF (congestive heart failure) ICD Codes: I50.9 - Heart failure, unspecified Status: Chronic (3) Diabetes ICD Codes: E11.9 - Type 2 diabetes mellitus without complications Status: Chronic (4) HTN (hypertension) ICD Codes: I10 - Essential (primary) hypertension Status: Chronic (5) GERD (gastroesophageal reflux disease) ICD Codes: K21.9 - Gastro-esophageal reflux disease without esophagitis Status: Chronic Assessment and Plan Patient examined. Assessment and plan formulated with Sindhu Mckeon PA-C. Problem Qualifiers (1) CHF (congestive heart failure): (2) Diabetes: Qualified Codes: E11.21 - Type 2 diabetes mellitus with diabetic nephropathy; Z79.4 - buttermilk drier operator (current) use of insulin (3) HTN (hypertension): Qualified Codes: I10 - Essential (primary) hypertension Sindhu Mckeon Jul 28, 2017 08:57 Yves Corona DO Jul 31, 2017 00:03
[2017-07-28] MEDS: DOCUSATE SODIUM 100 MG CAP PO SCH ×2 (09:00→21:57)
[2017-07-28] MEDS: INSULIN DETEMIR 100 UNITS/ML VIAL SQ SCH ×2 (09:00→22:05)
[2017-07-28] MEDS: ATENOLOL 25 MG TAB PO SCH (10:26)
[2017-07-28] MEDS: POTASSIUM CHLORIDE 10 MEQ CAP PO SCH (10:26)
[2017-07-28] MEDS: PANTOPRAZOLE SOD 20 MG DELAYED RELEASE TAB PO SCH ×2 (10:27→21:58)
[2017-07-28] MEDS: CYANOCOBALAMIN 100 MCG TAB PO SCH (10:27)
[2017-07-28] MEDS: guaiFENesin E.R. 600 MG TAB PO SCH ×2 (10:27→21:58)
[2017-07-28] MEDS: GABAPENTIN 300 MG CAP PO SCH ×2 (10:27→21:57)
[2017-07-28] MEDS: FUROSEMIDE 40 MG TAB PO SCH (10:29)
[2017-07-28] MEDS: ALLOPURINOL 100 MG TAB PO SCH (10:29)
[2017-07-28] MEDS: LORATADINE 10 MG TAB PO SCH (10:29)
[2017-07-28] MEDS: SODIUM CHLORIDE 0.9% FLUSH 10 ML FLUSH IV FLUSH SCH ×2 (10:30→21:58)
[2017-07-28] MEDS: methylPREDNISolone SOD SUCC 125 MG/2 ML VIAL IV PUSH SCH ×4 (10:30→23:28)
[2017-07-28] MEDS: MAGNESIUM OXIDE 400 MG TAB PO SCH ×2 (10:32→21:57)
[2017-07-28] MEDS: ACETAMINOPHEN/HYDROcodone 325 MG/5 MG TAB PO PRN ×2 (16:42→22:02)
[2017-07-28] MEDS: ATORVASTATIN 20 MG TAB PO SCH (21:57)
[2017-07-28] MEDS: LEVOFLOXACIN/DEXTROSE 250 MG/50 ML IV SCH (22:07)
[2017-07-28] MEDS: TEMAZEPAM 15 MG CAP PO PRN (23:28)
[2017-07-29] VITALS (10 sets, daily range): BP systolic 139–178; BP diastolic 59–92; PULSE 57–83; RESP 18–20; TEMP 97.6–98.7; O2SAT 96–99
[2017-07-29] MEDS: RESP: BUDESONIDE 0.5 MG/2 ML NEB NEB SCH ×3 (00:35→20:54)
[2017-07-29] MEDS: RESP: ALBUTEROL 2.5 MG/IPRATROPIUM 0.5 MG NEB (SCH) INH ×6 (00:36→20:54)
[2017-07-29 06:14] LABS: BASOPHIL % 0.1 % (0.0-2.0); HEMATOCRIT 34.9 % (35.0-46.0); HEMOGLOBIN 11.5 GM/DL (11.6-15.3); LYMPH % 4.3 % (9.0-44.0); LYMPHOCYTE # 0.5 TH/MM3 (1.0-4.8); MEAN CELL VOLUME 89.3 FL (80.0-100.0); MEAN CORPUSCULAR HEMOGLOBIN 29.4 PG (27.0-34.0); MEAN PLATELET VOLUME 8.4 FL (7.0-11.0); MONO % 1.7 % (0.0-8.0); MONOCYTE # 0.2 TH/MM3 (0-0.9); NEUT % 93.9 % (16.0-70.0); PLATELET COUNT 150 TH/MM3 (150-450); RED CELL DISTRIBUTION WIDTH 15.6 % (11.6-17.2); WHITE BLOOD COUNT 10.7 TH/MM3 (4.0-11.0)
[2017-07-29] MEDS: methylPREDNISolone SOD SUCC 125 MG/2 ML VIAL IV PUSH SCH ×4 (06:21→22:38)
[2017-07-29] MEDS: SODIUM CHLORIDE 0.9% FLUSH 10 ML FLUSH IV FLUSH PRN (06:21)
[2017-07-29 06:29] LABS: BICARBONATE 29.5 MEQ/L (21.0-32.0); CALCIUM 8.7 MG/DL (8.5-10.1); CREATININE 1.42 MG/DL (0.50-1.00); MAGNESIUM 1.8 MG/DL (1.5-2.5)
[2017-07-29] MEDS: INSULIN ASPART SUPPLEMENTAL SCALE SQ SCH ×4 (08:56→22:41)
[2017-07-29] MEDS: guaiFENesin E.R. 600 MG TAB PO SCH ×2 (08:57→22:30)
[2017-07-29] MEDS: POTASSIUM CHLORIDE 10 MEQ CAP PO SCH (08:57)
[2017-07-29] MEDS: INSULIN DETEMIR 100 UNITS/ML VIAL SQ SCH ×2 (08:57→22:40)
[2017-07-29] MEDS: ATENOLOL 25 MG TAB PO SCH (08:57)
[2017-07-29] MEDS: ALLOPURINOL 100 MG TAB PO SCH (08:58)
[2017-07-29] MEDS: FUROSEMIDE 40 MG TAB PO SCH (08:58)
[2017-07-29] MEDS: PANTOPRAZOLE SOD 20 MG DELAYED RELEASE TAB PO SCH ×2 (08:58→22:32)
[2017-07-29] MEDS: GABAPENTIN 300 MG CAP PO SCH ×2 (08:59→22:31)
[2017-07-29] MEDS: LORATADINE 10 MG TAB PO SCH (08:59)
[2017-07-29] MEDS: DOCUSATE SODIUM 100 MG CAP PO SCH ×2 (08:59→22:30)
[2017-07-29] MEDS: MAGNESIUM OXIDE 400 MG TAB PO SCH ×2 (08:59→22:30)
[2017-07-29] MEDS: SODIUM CHLORIDE 0.9% FLUSH 10 ML FLUSH IV FLUSH SCH ×2 (12:41→22:32)
[2017-07-29] MEDS: CYANOCOBALAMIN 100 MCG TAB PO SCH (12:42)
[2017-07-29] MEDS ORDERED: SODIUM CHLOR 0.9% 1000 ML INJ 1,000 ML IV SCH (13:00)
[2017-07-29] MEDS: ACETAMINOPHEN/HYDROcodone 325 MG/5 MG TAB PO PRN ×2 (13:12→22:36)
--- NOTE | 2017-07-29 13:13 | HHI.PR ---
Subjective Remarks Pt feels slightly better today from a respiratory standpoint but she seems to have some situational depression Pt is on 3L of supplemental O2 Objective Vitals Vital Signs Date Time Temp Pulse Resp B/P (MAP) Pulse Ox O2 Delivery O2 Flow Rate FiO2 07/29/17 08:17 96 Nasal Cannula 3.00 07/29/17 08:00 74 07/29/17 04:00 98.7 72 20 140/61 (87) 96 07/29/17 03:44 83 07/28/17 23:48 77 07/28/17 23:29 98.5 71 18 156/70 (98) 98 07/28/17 19:50 97 Nasal Cannula 3.00 07/28/17 19:47 88 07/28/17 16:00 98.6 76 20 149/82 (104) 97 Result Diagram: 07/29/17 0515 07/29/17 0515 Other Results Laboratory Tests Test 07/29/17 05:15 White Blood Count 10.7 TH/MM3 Red Blood Count 3.90 MIL/MM3 Hemoglobin 11.5 GM/DL Hematocrit 34.9 % Mean Corpuscular Volume 89.3 FL Mean Corpuscular Hemoglobin 29.4 PG Mean Corpuscular Hemoglobin Concent 33.0 % Red Cell Distribution Width 15.6 % Platelet Count 150 TH/MM3 Mean Platelet Volume 8.4 FL Neutrophils (%) (Auto) 93.9 % Lymphocytes (%) (Auto) 4.3 % Monocytes (%) (Auto) 1.7 % Eosinophils (%) (Auto) 0.0 % Basophils (%) (Auto) 0.1 % Neutrophils # (Auto) 10.0 TH/MM3 Lymphocytes # (Auto) 0.5 TH/MM3 Monocytes # (Auto) 0.2 TH/MM3 Eosinophils # (Auto) 0.0 TH/MM3 Basophils # (Auto) 0.0 TH/MM3 CBC Comment DIFF FINAL Differential Comment Blood Urea Nitrogen 46 MG/DL Creatinine 1.42 MG/DL Random Glucose 237 MG/DL Calcium Level 8.7 MG/DL Magnesium Level 1.8 MG/DL Sodium Level 135 MEQ/L Potassium Level 4.5 MEQ/L Chloride Level 97 MEQ/L Carbon Dioxide Level 29.5 MEQ/L Anion Gap 9 MEQ/L Estimat Glomerular Filtration Rate 35 ML/MIN Imaging Last Impressions Chest CT 07/27/17 0000 Signed Impressions: Service Date/Time: Thursday, July 27, 2017 10:43 - CONCLUSION: Minimal stable changes lingula. Peribronchial thickening Hero Stringer MD FACR Chest X-Ray 07/26/17 1855 Signed Impressions: Service Date/Time: July 19:16 - CONCLUSION: No evidence of acute cardiopulmonary disease. Stanton Erickson MD Objective Remarks General: NAD, AAOx3 Chest: Expiratory wheeze bilaterally, slightly improved Cardiac: Regular Abd: +BS, soft ND/NT Ext: No edema A/P Problem List: (1) COPD (chronic obstructive pulmonary disease) with acute bronchitis ICD Codes: J44.0 - Chronic obstructive pulmonary disease with acute lower respiratory infection; J20.9 - Acute bronchitis, unspecified Status: Acute Plan: COPD with acute bronchitis - Pt is an 87 y/o female with COPD, chronic diastolic CHF, HTN, severe aortic stenosis, diabetes, and CKD. - She presented to the ED on 07/26/17 with complaints of productive cough and SOB x 3 days. Pt lives at a local [facility] and reports that many residents have been ill recently. - Pt has a hx of COPD and in the past has been on Advair and Spiriva but has not taken these for quite some time. - CXR in the ED showed nothing acute. - Pt was started on Levaquin IV at admission and this has been continued. - Cont. Mucinex 600mg po BID and Claritin 10mg po daily - Supplemental oxygen as needed. - Pt with some wheezing this morning. She wants to try some IV steroids to see if this may help. Pt had a possible reaction to PO steroids previously but now states that she had hives with a Z-bia and NOT to steroids. - Solu-medrol was started at 60mg BID and she tolerated this well. We will increase to 60mg Q6H on 07/28. - Duonebs to Q4H and Q2H PRN - Budesonide nebs BID - Pt with some slight symptomatic improvement today, continue current course. - Of note, in 06/2017 pt was seen in the ED with gastroenteritis and had a CT Abd/pelvis which subsequently noted several mildly enlarged retroperitoneal para-aortic LN and a 1cm opacity in the anterior lower lateral left lung. CT thorax was recommended as an outpt. - CT Thorax (07/27/17) --> Minimal stable changes lingula. Peribronchial thickening. - Supportive care - Try to mobilize pt off her back as much as possible - IS - PT 7 days a week - DVT prophylaxis with SCDs - Anticipate continued hospitalization for another 2-3 days Chronic diastolic CHF - No overt signs of failure on exam. - BNP relatively low. - Continue home meds, pt takes Lasix 40mg once daily CKD, stage 3 - Renal indices slightly up today. Pt states that she has not been eating as well as she normally does here in the hospital - We will give one bag of NS today - Repeat labs in AM - If labs not improved hold Lasix in AM Diabetes Mellitus - NovoLog SSI, increase to medium dose - Accu checks - Pt also takes Tresiba 36units daily at home - Levemir 10units BID and monitor BS levels, may need to titrate up with steroid hyperglycemia HTN - Home meds continued, Atenolol 25mg po daily GERD - PPI (2) CHF (congestive heart failure) ICD Codes: I50.9 - Heart failure, unspecified Status: Chronic (3) Diabetes ICD Codes: E11.9 - Type 2 diabetes mellitus without complications Status: Chronic (4) HTN (hypertension) ICD Codes: I10 - Essential (primary) hypertension Status: Chronic (5) GERD (gastroesophageal reflux disease) ICD Codes: K21.9 - Gastro-esophageal reflux disease without esophagitis Status: Chronic Assessment and Plan Patient examined. Assessment and plan formulated with Sindhu Mckeon PA-C. I agree with the above. 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
[2017-07-29] MEDS ORDERED: GLUCAGON 1 MG/ML VIAL OTHER PRN (13:30)
[2017-07-29] MEDS ORDERED: DEXTROSE 50% IN WATER 50 ML VIAL(D50) IV PUSH PRN (13:30)
[2017-07-29] MEDS: ATORVASTATIN 20 MG TAB PO SCH (22:31)
[2017-07-29] MEDS: LEVOFLOXACIN/DEXTROSE 250 MG/50 ML IV SCH (22:37)
[2017-07-30] VITALS (9 sets, daily range): BP systolic 140–199; BP diastolic 63–105; PULSE 49–79; RESP 18–20; TEMP 97.2–98; O2SAT 95–100
[2017-07-30] MEDS: TEMAZEPAM 15 MG CAP PO PRN ×2 (00:08→22:52)
[2017-07-30] MEDS: RESP: ALBUTEROL 2.5 MG/IPRATROPIUM 0.5 MG NEB (SCH) INH ×6 (00:47→20:30)
[2017-07-30 06:03] LABS: BICARBONATE 32.6 MEQ/L (21.0-32.0); CALCIUM 8.5 MG/DL (8.5-10.1); CREATININE 1.52 MG/DL (0.50-1.00); MAGNESIUM 2.1 MG/DL (1.5-2.5)
[2017-07-30] MEDS: methylPREDNISolone SOD SUCC 125 MG/2 ML VIAL IV PUSH SCH ×3 (06:14→17:54)
[2017-07-30] MEDS: SODIUM CHLORIDE 0.9% FLUSH 10 ML FLUSH IV FLUSH PRN (06:15)
[2017-07-30] MEDS: RESP: BUDESONIDE 0.5 MG/2 ML NEB NEB SCH ×2 (08:00→20:30)
[2017-07-30] MEDS: INSULIN ASPART SUPPLEMENTAL SCALE SQ SCH ×4 (09:43→21:27)
[2017-07-30] MEDS: SODIUM CHLORIDE 0.9% FLUSH 10 ML FLUSH IV FLUSH SCH ×2 (09:44→21:26)
[2017-07-30] MEDS: DOCUSATE SODIUM 100 MG CAP PO SCH ×2 (09:44→21:26)
[2017-07-30] MEDS: GABAPENTIN 300 MG CAP PO SCH ×2 (09:44→21:26)
[2017-07-30] MEDS: guaiFENesin E.R. 600 MG TAB PO SCH ×2 (09:44→21:26)
[2017-07-30] MEDS: POTASSIUM CHLORIDE 10 MEQ CAP PO SCH (09:44)
[2017-07-30] MEDS: LORATADINE 10 MG TAB PO SCH (09:44)
[2017-07-30] MEDS: ALLOPURINOL 100 MG TAB PO SCH (09:44)
[2017-07-30] MEDS: PANTOPRAZOLE SOD 20 MG DELAYED RELEASE TAB PO SCH ×2 (09:44→21:26)
[2017-07-30] MEDS: ATENOLOL 25 MG TAB PO SCH (09:44)
[2017-07-30] MEDS: MAGNESIUM OXIDE 400 MG TAB PO SCH ×2 (09:44→21:26)
[2017-07-30] MEDS: CYANOCOBALAMIN 100 MCG TAB PO SCH (09:45)
[2017-07-30] MEDS: INSULIN DETEMIR 100 UNITS/ML VIAL SQ SCH ×2 (09:45→21:27)
[2017-07-30] MEDS: ACETAMINOPHEN/HYDROcodone 325 MG/5 MG TAB PO PRN ×3 (09:48→22:49)
--- NOTE | 2017-07-30 18:39 | HHI.PR ---
Subjective Remarks Pt feels that overall she is slightly better today She is currently on 2L via [place] Objective Vitals Vital Signs Date Time Temp Pulse Resp B/P (MAP) Pulse Ox O2 Delivery O2 Flow Rate FiO2 07/30/17 16:00 97.4 62 18 146/63 (90) 100 07/30/17 12:00 97.8 71 19 199/90 (126) 98 07/30/17 08:05 99 Nasal Cannula 2.00 07/30/17 08:00 Nasal Cannula 3.00 07/30/17 08:00 97.5 78 19 172/105 (127) 98 07/30/17 04:00 97.2 73 20 165/81 (109) 95 07/30/17 03:45 49 07/30/17 00:05 98.0 76 18 140/65 (90) 98 07/29/17 23:48 63 07/29/17 20:54 98 Nasal Cannula 3.00 07/29/17 20:00 98.1 61 18 153/69 (97) 99 07/29/17 19:47 57 07/30/17 07/30/17 07/31/17 15:00 23:00 07:00 Intake Total 1680 ml Balance 1680 ml Intake Oral 1680 ml # Voids 10 # Bowel Movements 0 Result Diagram: 07/29/17 0515 07/30/17 0520 Other Results Laboratory Tests Test 07/29/17 05:15 07/30/17 05:20 White Blood Count 10.7 TH/MM3 Red Blood Count 3.90 MIL/MM3 Hemoglobin 11.5 GM/DL Hematocrit 34.9 % Mean Corpuscular Volume 89.3 FL Mean Corpuscular Hemoglobin 29.4 PG Mean Corpuscular Hemoglobin Concent 33.0 % Red Cell Distribution Width 15.6 % Platelet Count 150 TH/MM3 Mean Platelet Volume 8.4 FL Neutrophils (%) (Auto) 93.9 % Lymphocytes (%) (Auto) 4.3 % Monocytes (%) (Auto) 1.7 % Eosinophils (%) (Auto) 0.0 % Basophils (%) (Auto) 0.1 % Neutrophils # (Auto) 10.0 TH/MM3 Lymphocytes # (Auto) 0.5 TH/MM3 Monocytes # (Auto) 0.2 TH/MM3 Eosinophils # (Auto) 0.0 TH/MM3 Basophils # (Auto) 0.0 TH/MM3 CBC Comment DIFF FINAL Differential Comment Blood Urea Nitrogen 46 MG/DL 49 MG/DL Creatinine 1.42 MG/DL 1.52 MG/DL Random Glucose 237 MG/DL 273 MG/DL Calcium Level 8.7 MG/DL 8.5 MG/DL Magnesium Level 1.8 MG/DL 2.1 MG/DL Sodium Level 135 MEQ/L 139 MEQ/L Potassium Level 4.5 MEQ/L 4.1 MEQ/L Chloride Level 97 MEQ/L 99 MEQ/L Carbon Dioxide Level 29.5 MEQ/L 32.6 MEQ/L Anion Gap 9 MEQ/L 7 MEQ/L Estimat Glomerular Filtration Rate 35 ML/MIN 32 ML/MIN Imaging Last Impressions Chest CT 07/27/17 0000 Signed Impressions: Service Date/Time: Thursday, July 27, 2017 10:43 - CONCLUSION: Minimal stable changes lingula. Peribronchial thickening Hero Stringer MD FACR Chest X-Ray 07/26/17 1855 Signed Impressions: Service Date/Time: July 19:16 - CONCLUSION: No evidence of acute cardiopulmonary disease. Stanton Erickson MD Objective Remarks General: NAD, AAOx3 Chest: Expiratory wheeze bilaterally, improved air movement Cardiac: Regular Abd: +BS, soft ND/NT Ext: No edema A/P Problem List: (1) COPD (chronic obstructive pulmonary disease) with acute bronchitis ICD Codes: J44.0 - Chronic obstructive pulmonary disease with acute lower respiratory infection; J20.9 - Acute bronchitis, unspecified Status: Acute Plan: COPD with acute bronchitis - Pt is an 87 y/o female with COPD, chronic diastolic CHF, HTN, severe aortic stenosis, diabetes, and CKD. - She presented to the ED on 07/26/17 with complaints of productive cough and SOB x 3 days. Pt lives at a local [facility] and reports that many residents have been ill recently. - Pt has a hx of COPD and in the past has been on Advair and Spiriva but has not taken these for quite some time. - CXR in the ED showed nothing acute. - Pt was started on Levaquin IV at admission and this has been continued. - Cont. Mucinex 600mg po BID and Claritin 10mg po daily - Supplemental oxygen as needed. - Pt with some wheezing this morning. She wants to try some IV steroids to see if this may help. Pt had a possible reaction to PO steroids previously but now states that she had hives with a Z-bia and NOT to steroids. - Solu-medrol was started at 60mg BID and she tolerated this well. We will increase to 60mg Q6H on 07/28. - Duonebs to Q4H and Q2H PRN - Budesonide nebs BID - Pt with some slight symptomatic improvement today, continue current course. - Consult Pulmonology - Of note, in 06/2017 pt was seen in the ED with gastroenteritis and had a CT Abd/pelvis which subsequently noted several mildly enlarged retroperitoneal para-aortic LN and a 1cm opacity in the anterior lower lateral left lung. CT thorax was recommended as an outpt. - CT Thorax (07/27/17) --> Minimal stable changes lingula. Peribronchial thickening. - Supportive care - Try to mobilize pt off her back as much as possible - IS - PT 7 days a week - DVT prophylaxis with SCDs - Anticipate continued hospitalization for another 2-3 days Chronic diastolic CHF - No overt signs of failure on exam. - BNP relatively low. - Continue home meds, pt takes Lasix 40mg once daily CKD, stage 3 - Renal indices slightly up today. Pt states that she has not been eating as well as she normally does here in the hospital - Pt was given 1L of NS on 07/29 - Lasix held today as Cr increased to 1.52 - Repeat labs in AM - Encouraged oral intake - If no improvement tomorrow may need to consult Nephrology Diabetes Mellitus - NovoLog SSI, increase to medium dose - Accu checks - Pt also takes Tresiba 36units daily at home - Levemir titrated up to 15units BID on 07/29/17 but BS still running in the high 200-low 300s - Increase Levemir to 20 units BID - Monitor BS levels, may need to titrate up with steroid hyperglycemia HTN - Home meds continued, Atenolol 25mg po daily GERD - PPI (2) CHF (congestive heart failure) ICD Codes: I50.9 - Heart failure, unspecified Status: Chronic (3) Diabetes ICD Codes: E11.9 - Type 2 diabetes mellitus without complications Status: Chronic (4) HTN (hypertension) ICD Codes: I10 - Essential (primary) hypertension Status: Chronic (5) GERD (gastroesophageal reflux disease) ICD Codes: K21.9 - Gastro-esophageal reflux disease without esophagitis Status: Chronic Assessment and Plan Patient examined. Assessment and plan formulated with Sindhu Mckeon PA-C. I agree with the above. Improved air movement on auscultation. decreased wheezing. continue IV steroids, duonebs. Increase levemir. blood sugars elevated with steroids. Problem Qualifiers (1) CHF (congestive heart failure): (2) Diabetes: Qualified Codes: E11.21 - Type 2 diabetes mellitus with diabetic nephropathy; Z79.4 - intermediate (current) use of insulin (3) HTN (hypertension): Qualified Codes: I10 - Essential (primary) hypertension Sindhu Mckeon Jul 30, 2017 18:39 Yves Corona DO Jul 30, 2017 22:19
[2017-07-30] MEDS: LEVOFLOXACIN/DEXTROSE 250 MG/50 ML IV SCH (21:26)
[2017-07-30] MEDS: ATORVASTATIN 20 MG TAB PO SCH (21:26)
[2017-07-31] VITALS (8 sets, daily range): BP systolic 147–189; BP diastolic 67–92; PULSE 71–87; RESP 18–21; TEMP 97.3–98.3; O2SAT 94–98
[2017-07-31] MEDS: RESP: ALBUTEROL 2.5 MG/IPRATROPIUM 0.5 MG NEB (SCH) INH ×6 (00:20→20:37)
[2017-07-31] MEDS: methylPREDNISolone SOD SUCC 125 MG/2 ML VIAL IV PUSH SCH ×2 (00:40→06:55)
[2017-07-31] MEDS: POTASSIUM CHLORIDE 10 MEQ CAP PO SCH (08:22)
[2017-07-31] MEDS: PANTOPRAZOLE SOD 20 MG DELAYED RELEASE TAB PO SCH ×2 (08:23→22:41)
[2017-07-31] MEDS: LORATADINE 10 MG TAB PO SCH (08:23)
[2017-07-31] MEDS: ALLOPURINOL 100 MG TAB PO SCH (08:23)
[2017-07-31] MEDS: DOCUSATE SODIUM 100 MG CAP PO SCH ×2 (08:23→22:41)
[2017-07-31] MEDS: GABAPENTIN 300 MG CAP PO SCH ×2 (08:23→22:41)
[2017-07-31] MEDS: ATENOLOL 25 MG TAB PO SCH (08:23)
[2017-07-31] MEDS: MAGNESIUM OXIDE 400 MG TAB PO SCH ×2 (08:23→22:40)
[2017-07-31] MEDS: guaiFENesin E.R. 600 MG TAB PO SCH ×2 (08:23→22:40)
[2017-07-31] MEDS: CYANOCOBALAMIN 100 MCG TAB PO SCH (08:23)
[2017-07-31] MEDS: SODIUM CHLORIDE 0.9% FLUSH 10 ML FLUSH IV FLUSH SCH ×2 (08:24→22:42)
[2017-07-31] MEDS: INSULIN DETEMIR 100 UNITS/ML VIAL SQ SCH ×2 (08:24→22:54)
[2017-07-31] MEDS: RESP: BUDESONIDE 0.5 MG/2 ML NEB NEB SCH ×2 (08:28→20:37)
[2017-07-31 08:38] LABS: CREATININE 1.44 MG/DL (0.50-1.00); MAGNESIUM 2.2 MG/DL (1.5-2.5)
[2017-07-31] MEDS: INSULIN ASPART SUPPLEMENTAL SCALE SQ SCH ×4 (08:38→22:54)
[2017-07-31] MEDS: methylPREDNISolone SOD SUCC 40 MG/1 ML VIAL IV PUSH SCH ×2 (14:00→22:41)
--- NOTE | 2017-07-31 14:43 | MB ---
cc: SHADE HOBBS EDWARD B. DO DATE OF CONSULTATION 07/31/2017 REASON FOR CONSULTATION COPD exacerbation. HISTORY OF PRESENT ILLNESS Ms. Pederson is a pleasant 87-year-old female with a history of aortic stenosis and diabetes mellitus on insulin. She also has a history of COPD and congestive heart failure. The patient lives at [facility] assisted living [facility]. There were a lot of sick people there. She came to the hospital with worsening of congestion in the chest and cough with a small amount of sputum production. She did not have any fever or chills, no chest pain. She was evaluated in the hospital. She had a CT scan of the chest done which showed minimal change in the lingula and peribronchial thickening. Her CBC showed WBC count 10.7, hemoglobin 11.5, hematocrit 34.9, MCV 89, platelet count 150. Sodium 130, potassium 4.6, chloride 98, CO2 27, BUN 46, creatinine 1.44, glucose 304. Blood cultures so far are negative. PAST MEDICAL HISTORY 1. Diabetes mellitus. 2. Chronic kidney disease. She was on dialysis for 13 months and was taken off of dialysis. 3. Aortic stenosis. 4. Congestive heart failure. 5. Degenerative disease. The patient does not ambulate because of a back problem. MEDICATIONS She is currently takin. Detemir insulin 20 units q.12h. 2. NovoLog insulin sliding scale. 3. DuoNeb nebulizer treatment. 4. Pulmicort nebulizer treatment twice a day. 5. Solu-Medrol 60 mg q.6h. 6. Levaquin q.24h. 7. Lipitor 20 mg a day. 8. Zyloprim 100 mg a day. 9. Atenolol 25 mg a day. 10.Colace 100 mg twice a day. 11.Neurontin 300 mg twice a day. 12.Vitamin-B12 250 mcg a day. 13.Protonix 40 mg a day. 14.Mucinex 600 mg twice a day. 15.Loratadine 10 mg a day. 16.Restoril 15 mg at nighttime. ALLERGIES 1. ASPIRIN. 2. AZITHROMYCIN. 3. DICLOFENAC. 4. ERYTHROMYCIN 5. ETODOLAC. 6. FLURBIPROFEN. 7. IBUPROFEN. 8. INDOMETHACIN. 9. KETOPROFEN. 10.KETOROLAC. 11.NAPROXEN. 12.OXAPROXIN. 13.PREDNISONE, although she is tolerating Solu-Medrol. SOCIAL HISTORY She has been three times. No history of smoking, has secondhand smoke exposure. 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 FAMILY HISTORY She had three children who . REVIEW OF SYSTEMS She lives in an assisted living facility, does not ambulate. Denies any DVT or pulmonary embolism. No malignancy. No seizure, stroke or epilepsy. PHYSICAL EXAMINATION GENERAL: This is an obese female, mildly short of breath, not in acute distress. VITAL SIGNS: Blood pressure 189/68, heart rate 75, respirations 21, temperature 97.3. HEENT: Pupils are equal and reactive to light. NECK: Supple. JVP not raised. CHEST: Equal air entry bilaterally. Faint rhonchi. CARDIOVASCULAR: S1, S2 normal. ABDOMEN: Soft, nondistended. Bowel sounds are present. EXTREMITIES: 1+ pedal edema. NEUROLOGIC: Alert and oriented x3. No focal deficit. IMPRESSION 1. COPD with exacerbation, improving. 2. Bronchitis. 3. Diabetes mellitus. 4. Chronic kidney disease. 5. Aortic stenosis. 6. Macular degeneration. PLAN I discussed with the patient. Will check her bedside pulmonary function studies. Decrease her Solu-Medrol. Monitor her blood sugar. Continue her antibiotics. Will wean the oxygen as she tolerates. Further treatment will depend on the course in the hospital. Thank you, Dr. Corona, for this consultation. MD DENY Carpenter/SILKE /11:29 AM /11:52 AM JONATHON
--- NOTE | 2017-07-31 17:40 | HHI.PR ---
Subjective Remarks Blood sugars are still running in the 300's She is down to 1L of supplemental She is feeling overall better but exam still with coarse breath sounds and wheezing. Objective Vitals Vital Signs Date Time Temp Pulse Resp B/P (MAP) Pulse Ox O2 Delivery O2 Flow Rate FiO2 07/31/17 16:06 97.6 71 20 180/79 (112) 95 07/31/17 12:03 97.7 77 21 147/67 (93) 95 07/31/17 09:52 Nasal Cannula 1.00 07/31/17 08:31 98 Nasal Cannula 1.00 07/31/17 08:05 97.3 75 21 189/68 (108) 94 07/31/17 04:07 97.3 87 18 169/92 (117) 95 07/31/17 00:30 98.3 82 18 154/69 (97) 96 07/30/17 21:57 Nasal Cannula 1.00 07/30/17 21:12 97.6 79 20 176/77 (110) 97 07/30/17 20:34 99 Nasal Cannula 1.00 07/30/17 19:36 Nasal Cannula 2.00 Result Diagram: 07/29/17 0515 07/31/17 0755 Other Results Laboratory Tests Test 07/30/17 05:20 07/31/17 07:55 Blood Urea Nitrogen 49 MG/DL 46 MG/DL Creatinine 1.52 MG/DL 1.44 MG/DL Random Glucose 273 MG/DL 304 MG/DL Calcium Level 8.5 MG/DL 9.0 MG/DL Magnesium Level 2.1 MG/DL 2.2 MG/DL Sodium Level 139 MEQ/L 135 MEQ/L Potassium Level 4.1 MEQ/L 4.6 MEQ/L Chloride Level 99 MEQ/L 98 MEQ/L Carbon Dioxide Level 32.6 MEQ/L 27.0 MEQ/L Anion Gap 7 MEQ/L 10 MEQ/L Estimat Glomerular Filtration Rate 32 ML/MIN 34 ML/MIN Imaging Last Impressions Chest CT 07/27/17 0000 Signed Impressions: Service Date/Time: Thursday, July 27, 2017 10:43 - CONCLUSION: Minimal stable changes lingula. Peribronchial thickening Hero Stringer MD FACR Chest X-Ray 07/26/17 1855 Signed Impressions: Service Date/Time: July 19:16 - CONCLUSION: No evidence of acute cardiopulmonary disease. Stanton Erickson MD Objective Remarks General: NAD, AAOx3 Chest: Expiratory wheeze bilaterally, improved air movement Cardiac: Regular Abd: +BS, soft ND/NT Ext: No edema A/P Problem List: (1) COPD (chronic obstructive pulmonary disease) with acute bronchitis ICD Codes: J44.0 - Chronic obstructive pulmonary disease with acute lower respiratory infection; J20.9 - Acute bronchitis, unspecified Status: Acute Plan: COPD with acute bronchitis - Pt is an 87 y/o female with COPD, chronic diastolic CHF, HTN, severe aortic stenosis, diabetes, and CKD. - She presented to the ED on 07/26/17 with complaints of productive cough and SOB x 3 days. Pt lives at a local [facility] and reports that many residents have been ill recently. - Pt has a hx of COPD and in the past has been on Advair and Spiriva but has not taken these for quite some time. - CXR in the ED showed nothing acute. - Pt was started on Levaquin IV at admission and this has been continued. - Cont. Mucinex 600mg po BID and Claritin 10mg po daily - Supplemental oxygen as needed. - Pt with some wheezing this morning. She wants to try some IV steroids to see if this may help. Pt had a possible reaction to PO steroids previously but now states that she had hives with a Z-bia and NOT to steroids. - Solu-Medrol was started at 60mg BID and she tolerated this well. This was increased to 60mg Q6H on 07/28. Solu-Medrol was changed to 40mg Q8H on 07/31/17 - Duonebs to Q4H and Q2H PRN - Budesonide nebs BID - Pt with some slight symptomatic improvement today, continue current course. - Levaquin stopped on 07/31 - Appreciate consult from Pulmonology - Of note, in 06/2017 pt was seen in the ED with gastroenteritis and had a CT Abd/pelvis which subsequently noted several mildly enlarged retroperitoneal para-aortic LN and a 1cm opacity in the anterior lower lateral left lung. CT thorax was recommended as an outpt. - CT Thorax (07/27/17) --> Minimal stable changes lingula. Peribronchial thickening. - Supportive care - Try to mobilize pt off her back as much as possible - IS - PT 7 days a week - DVT prophylaxis with SCDs - Anticipate continued hospitalization for another 2-3 days Chronic diastolic CHF - No overt signs of failure on exam. - BNP relatively low. - Continue home meds, pt takes Lasix 40mg once daily CKD, stage 3 - Renal indices slightly up today. Pt states that she has not been eating as well as she normally does here in the hospital - Pt was given 1L of NS on 07/29 - Lasix held as Cr increased to 1.52 on 07/30, repeat labs on 07/31 with Cr. 1.44 - Repeat labs in AM - Pt may need Lasix resumed - Encouraged oral intake Diabetes Mellitus - NovoLog SSI, increase to high dose - Accu checks - Pt also takes Tresiba 36units daily at home - Levemir titrated up to 15units BID on 07/29/17 but BS still running in the high 200-low 300s - Levemir increased to 20 units BID on 07/30 - Monitor BS levels, may need to titrate up with steroid hyperglycemia HTN - Home meds continued, Atenolol 25mg po daily GERD - PPI (2) CHF (congestive heart failure) ICD Codes: I50.9 - Heart failure, unspecified Status: Chronic (3) Diabetes ICD Codes: E11.9 - Type 2 diabetes mellitus without complications Status: Chronic (4) HTN (hypertension) ICD Codes: I10 - Essential (primary) hypertension Status: Chronic (5) GERD (gastroesophageal reflux disease) ICD Codes: K21.9 - Gastro-esophageal reflux disease without esophagitis Status: Chronic Assessment and Plan Patient examined. Assessment and plan formulated with Sindhu Mckeon PA-C. Problem Qualifiers (1) CHF (congestive heart failure): (2) Diabetes: Qualified Codes: E11.21 - Type 2 diabetes mellitus with diabetic nephropathy; Z79.4 - alf (current) use of insulin (3) HTN (hypertension): Qualified Codes: I10 - Essential (primary) hypertension Sindhu Mckeon Jul 31, 2017 17:40 Yves Corona DO Aug 02, 2017 23:32
[2017-07-31] MEDS: TEMAZEPAM 15 MG CAP PO PRN (22:40)
[2017-07-31] MEDS: ATORVASTATIN 20 MG TAB PO SCH (22:41)
[2017-07-31] MEDS: ACETAMINOPHEN/HYDROcodone 325 MG/5 MG TAB PO PRN (22:41)
[2017-08-01] VITALS (8 sets, daily range): BP systolic 112–169; BP diastolic 53–79; PULSE 65–89; RESP 17–21; TEMP 97.6–98; O2SAT 94–99
[2017-08-01] MEDS: RESP: ALBUTEROL 2.5 MG/IPRATROPIUM 0.5 MG NEB (SCH) INH ×6 (00:21→19:41)
[2017-08-01] MEDS: methylPREDNISolone SOD SUCC 40 MG/1 ML VIAL IV PUSH SCH ×2 (06:41→13:41)
[2017-08-01] MEDS: RESP: BUDESONIDE 0.5 MG/2 ML NEB NEB SCH ×2 (07:58→19:41)
[2017-08-01] MEDS: INSULIN ASPART SUPPLEMENTAL SCALE SQ SCH ×4 (08:16→21:00)
[2017-08-01] MEDS: INSULIN DETEMIR 100 UNITS/ML VIAL SQ SCH ×2 (08:17→22:25)
[2017-08-01] MEDS: ACETAMINOPHEN/HYDROcodone 325 MG/5 MG TAB PO PRN ×3 (08:17→22:23)
[2017-08-01] MEDS: PANTOPRAZOLE SOD 20 MG DELAYED RELEASE TAB PO SCH ×2 (08:25→22:23)
[2017-08-01] MEDS: CYANOCOBALAMIN 100 MCG TAB PO SCH (08:25)
[2017-08-01] MEDS: POTASSIUM CHLORIDE 10 MEQ CAP PO SCH (08:25)
[2017-08-01] MEDS: GABAPENTIN 300 MG CAP PO SCH ×2 (08:25→22:24)
[2017-08-01] MEDS: DOCUSATE SODIUM 100 MG CAP PO SCH ×2 (08:25→22:23)
[2017-08-01] MEDS: ATENOLOL 25 MG TAB PO SCH (08:25)
[2017-08-01] MEDS: ALLOPURINOL 100 MG TAB PO SCH (08:26)
[2017-08-01] MEDS: SODIUM CHLORIDE 0.9% FLUSH 10 ML FLUSH IV FLUSH SCH ×2 (08:26→22:24)
[2017-08-01] MEDS: MAGNESIUM OXIDE 400 MG TAB PO SCH ×2 (08:26→22:23)
[2017-08-01] MEDS: LORATADINE 10 MG TAB PO SCH (08:26)
[2017-08-01] MEDS: guaiFENesin E.R. 600 MG TAB PO SCH ×2 (08:26→22:24)
[2017-08-01 12:29] LABS: BICARBONATE 25.5 MEQ/L (21.0-32.0); CREATININE 1.58 MG/DL (0.50-1.00); MAGNESIUM 1.9 MG/DL (1.5-2.5)
--- NOTE | 2017-08-01 16:07 | HHI.PR ---
Subjective Remarks Offers no new complaints continues to have SOB Objective Vitals Vital Signs Date Time Temp Pulse Resp B/P (MAP) Pulse Ox O2 Delivery O2 Flow Rate FiO2 08/01/17 15:57 96 Nasal Cannula 1.00 08/01/17 12:32 97.7 83 17 144/67 (92) 94 08/01/17 09:17 18 08/01/17 08:57 97.7 65 17 162/65 (97) 97 08/01/17 08:01 99 Nasal Cannula 1.00 08/01/17 08:00 94 Nasal Cannula 3.00 08/01/17 04:00 97.6 84 18 148/65 (92) 94 08/01/17 00:00 97.8 89 21 112/53 (72) 97 08/01/17 00:00 Nasal Cannula 0.50 07/31/17 22:57 Nasal Cannula 0.50 07/31/17 20:49 95 Nasal Cannula 1.00 07/31/17 20:00 97.3 74 18 173/76 (108) 94 08/01/17 08/01/17 08/02/17 15:00 23:00 07:00 Intake Total 240 ml Balance 240 ml Intake Oral 240 ml # Voids 2 # Bowel Movements 1 Result Diagram: 07/29/17 0515 08/01/17 0949 Other Results Laboratory Tests Test 07/30/17 05:20 07/31/17 07:55 08/01/17 09:49 Blood Urea Nitrogen 49 MG/DL 46 MG/DL 48 MG/DL Creatinine 1.52 MG/DL 1.44 MG/DL 1.58 MG/DL Random Glucose 273 MG/DL 304 MG/DL 381 MG/DL Calcium Level 8.5 MG/DL 9.0 MG/DL 9.0 MG/DL Magnesium Level 2.1 MG/DL 2.2 MG/DL 1.9 MG/DL Sodium Level 139 MEQ/L 135 MEQ/L 133 MEQ/L Potassium Level 4.1 MEQ/L 4.6 MEQ/L 4.7 MEQ/L Chloride Level 99 MEQ/L 98 MEQ/L 97 MEQ/L Carbon Dioxide Level 32.6 MEQ/L 27.0 MEQ/L 25.5 MEQ/L Anion Gap 7 MEQ/L 10 MEQ/L 11 MEQ/L Estimat Glomerular Filtration Rate 32 ML/MIN 34 ML/MIN 31 ML/MIN Imaging Last Impressions Chest CT 07/27/17 0000 Signed Impressions: Service Date/Time: Thursday, July 27, 2017 10:43 - CONCLUSION: Minimal stable changes lingula. Peribronchial thickening Hero Stringer MD FACR Chest X-Ray 07/26/17 1855 Signed Impressions: Service Date/Time: July 19:16 - CONCLUSION: No evidence of acute cardiopulmonary disease. Stanton Erickson MD Objective Remarks General: NAD, AAOx3 Chest: improved air movement Cardiac: Regular Abd: +BS, soft ND/NT Ext: No edema A/P Problem List: (1) COPD (chronic obstructive pulmonary disease) with acute bronchitis ICD Codes: J44.0 - Chronic obstructive pulmonary disease with acute lower respiratory infection; J20.9 - Acute bronchitis, unspecified Status: Acute Plan: COPD with acute bronchitis - Pt is an 87 y/o female with COPD, chronic diastolic CHF, HTN, severe aortic stenosis, diabetes, and CKD. - She presented to the ED on 07/26/17 with complaints of productive cough and SOB x 3 days. Pt lives at a local [facility] and reports that many residents have been ill recently. - Pt has a hx of COPD and in the past has been on Advair and Spiriva but has not taken these for quite some time. - CXR in the ED showed nothing acute. - Pt was started on Levaquin IV at admission and this has been continued. - Cont. Mucinex 600mg po BID and Claritin 10mg po daily - Supplemental oxygen as needed. - Pt with some wheezing this morning. She wants to try some IV steroids to see if this may help. Pt had a possible reaction to PO steroids previously but now states that she had hives with a Z-bia and NOT to steroids. - Solu-Medrol was started at 60mg BID and she tolerated this well. This was increased to 60mg Q6H on 07/28. Solu-Medrol was changed to 40mg Q8H on 07/31/17 - prednisone 30 PO BID - Duonebs to Q4H and Q2H PRN - Budesonide nebs BID - Pt with some slight symptomatic improvement today, continue current course. - Levaquin stopped on 07/31 - Appreciate consult from Pulmonology - Of note, in 06/2017 pt was seen in the ED with gastroenteritis and had a CT Abd/pelvis which subsequently noted several mildly enlarged retroperitoneal para-aortic LN and a 1cm opacity in the anterior lower lateral left lung. CT thorax was recommended as an outpt. - CT Thorax (07/27/17) --> Minimal stable changes lingula. Peribronchial thickening. - Supportive care - Try to mobilize pt off her back as much as possible - IS - PT 7 days a week - DVT prophylaxis with SCDs - Anticipate continued hospitalization for another 2-3 days Chronic diastolic CHF - No overt signs of failure on exam. - BNP relatively low. - Continue home meds, pt takes Lasix 40mg once daily CKD, stage 3 - Renal indices slightly up today. Pt states that she has not been eating as well as she normally does here in the hospital - Pt was given 1L of NS on 07/29 - Lasix held as Cr increased to 1.52 on 07/30, repeat labs on 07/31 with Cr. 1.44 - Repeat labs in AM - Pt may need Lasix resumed - Encouraged oral intake Diabetes Mellitus - NovoLog SSI, increase to high dose - Accu checks - Pt also takes Tresiba 36units daily at home - Levemir titrated up to 15units BID on 07/29/17 but BS still running in the high 200-low 300s - Levemir increased to 20 units BID on 07/30 - Levemir increased to 25 units SQ BID 08/01 - Monitor BS levels, may need to titrate up with steroid hyperglycemia. steroids changed to Prednisone will continue to monitor blood glucose HTN - Home meds continued, Atenolol 25mg po daily GERD - PPI (2) CHF (congestive heart failure) ICD Codes: I50.9 - Heart failure, unspecified Status: Chronic (3) Diabetes ICD Codes: E11.9 - Type 2 diabetes mellitus without complications Status: Chronic (4) HTN (hypertension) ICD Codes: I10 - Essential (primary) hypertension Status: Chronic (5) GERD (gastroesophageal reflux disease) ICD Codes: K21.9 - Gastro-esophageal reflux disease without esophagitis Status: Chronic Assessment and Plan Patient examined. Assessment and plan formulated with Jasmine Rios PA-C. I agree with the above. Problem Qualifiers (1) CHF (congestive heart failure): (2) Diabetes: Qualified Codes: E11.21 - Type 2 diabetes mellitus with diabetic nephropathy; Z79.4 - MCC (current) use of insulin (3) HTN (hypertension): Qualified Codes: I10 - Essential (primary) hypertension Jasmine Rios Aug 01, 2017 16:07 Yves Corona DO Aug 02, 2017 23:33
--- NOTE | 2017-08-01 18:40 | HHI.PR ---
Subjective Remarks 87 YOWF with COPD exac, DM Feels breatthing better Weak Occ cough, no sp Changed to PO Steroids Objective Vital Signs Vital Signs Date Time Temp Pulse Resp B/P (MAP) Pulse Ox O2 Delivery O2 Flow Rate FiO2 08/01/17 16:41 97.9 73 17 169/79 (109) 96 08/01/17 15:57 96 Nasal Cannula 1.00 08/01/17 12:32 97.7 83 17 144/67 (92) 94 08/01/17 09:17 18 08/01/17 08:57 97.7 65 17 162/65 (97) 97 08/01/17 08:01 99 Nasal Cannula 1.00 08/01/17 08:00 94 Nasal Cannula 3.00 08/01/17 04:00 97.6 84 18 148/65 (92) 94 08/01/17 00:00 97.8 89 21 112/53 (72) 97 08/01/17 00:00 Nasal Cannula 0.50 07/31/17 22:57 Nasal Cannula 0.50 07/31/17 20:49 95 Nasal Cannula 1.00 07/31/17 20:00 97.3 74 18 173/76 (108) 94 I/O 07/31/17 07/31/17 07/31/17 08/01/17 08/01/17 08/01/17 06:59 14:59 22:59 06:59 14:59 22:59 Intake Total 600 ml 480 ml 480 ml Output Total 1500 ml Balance 600 ml 480 ml -1500 ml 480 ml Intake Oral 600 ml 480 ml 480 ml Output Urine Total 1500 ml # Voids 5 5 2 # Bowel Movements 0 1 1 Result Diagram: 07/29/17 0515 08/01/17 0949 Objective Remarks GENERAL: Obese , elderly female, mild sob SKIN: Warm and dry. HEAD: Normocephalic. EYES: No scleral icterus. No injection or drainage. NECK: Supple, trachea midline. No JVD or lymphadenopathy. CARDIOVASCULAR: Regular rate and rhythm without murmurs, gallops, or rubs. RESPIRATORY: Breath sounds equal bilaterally. No accessory muscle use. GASTROINTESTINAL: Abdomen soft, non-tender, nondistended. MUSCULOSKELETAL: No cyanosis, + edema. BACK: Nontender without obvious deformity. No CVA tenderness. A/P Assessment and Plan COPD Exac DM HTN CHF Obesity Aortic stenosis PLAN: Aerosol nebs PO Steroids monitor BS Supplement 02 Check PFT Taran Campbell MD Aug 01, 2017 18:39
[2017-08-01] MEDS: predniSONE 20 MG TAB PO SCH (22:23)
[2017-08-01] MEDS: ATORVASTATIN 20 MG TAB PO SCH (22:24)
[2017-08-02] VITALS (9 sets, daily range): BP systolic 131–160; BP diastolic 62–73; PULSE 68–79; RESP 18–20; TEMP 97.3–98.4; O2SAT 94–100
[2017-08-02] MEDS: RESP: ALBUTEROL 2.5 MG/IPRATROPIUM 0.5 MG NEB (SCH) INH ×6 (01:16→20:54)
[2017-08-02] MEDS: ACETAMINOPHEN/HYDROcodone 325 MG/5 MG TAB PO PRN ×3 (03:49→21:55)
[2017-08-02] MEDS: RESP: BUDESONIDE 0.5 MG/2 ML NEB NEB SCH ×2 (08:48→20:54)
[2017-08-02] MEDS: LORATADINE 10 MG TAB PO SCH (09:00)
[2017-08-02] MEDS: SODIUM CHLORIDE 0.9% FLUSH 10 ML FLUSH IV FLUSH SCH ×2 (09:34→21:56)
[2017-08-02] MEDS: INSULIN ASPART SUPPLEMENTAL SCALE SQ SCH ×4 (09:34→21:56)
[2017-08-02] MEDS: guaiFENesin E.R. 600 MG TAB PO SCH ×2 (09:35→21:55)
[2017-08-02] MEDS: POTASSIUM CHLORIDE 10 MEQ CAP PO SCH (09:36)
[2017-08-02] MEDS: ALLOPURINOL 100 MG TAB PO SCH (09:36)
[2017-08-02] MEDS: predniSONE 20 MG TAB PO SCH ×2 (09:36→21:55)
[2017-08-02] MEDS: MAGNESIUM OXIDE 400 MG TAB PO SCH ×2 (09:36→21:55)
[2017-08-02] MEDS: DOCUSATE SODIUM 100 MG CAP PO SCH ×2 (09:36→21:55)
[2017-08-02] MEDS: PANTOPRAZOLE SOD 20 MG DELAYED RELEASE TAB PO SCH ×2 (09:36→21:55)
[2017-08-02] MEDS: CYANOCOBALAMIN 100 MCG TAB PO SCH (09:37)
[2017-08-02] MEDS: INSULIN DETEMIR 100 UNITS/ML VIAL SQ SCH ×2 (09:37→21:00)
[2017-08-02] MEDS: ATENOLOL 25 MG TAB PO SCH (09:37)
[2017-08-02] MEDS: GABAPENTIN 300 MG CAP PO SCH ×2 (09:37→21:55)
--- NOTE | 2017-08-02 09:45 | RSPPFT ---
DATE OF PROCEDURE: 08/01/18 COMMENTS: Spirometry shows FVC of 1.4 at 69% of predicted, FEV1 of 1.1 at 84%, FEV1/FVC ratio is normal. Flow is normal at FEF 25, FEF 50, FEF 75 and FEF 25-75. There is no response after bronchodilator treatment. IMPRESSION: 1. Findings are suggestive of restrictive lung disease. 2. No response after bronchodilator treatment. 3. Patient will need a complete pulmonary function study for further evaluation.
--- NOTE | 2017-08-02 13:24 | HHI.PR ---
Subjective Remarks patient reports breathing feels better today Objective Vitals Vital Signs Date Time Temp Pulse Resp B/P (MAP) Pulse Ox O2 Delivery O2 Flow Rate FiO2 08/02/17 08:50 98 Nasal Cannula 2.00 08/02/17 08:00 97.6 76 18 159/72 (101) 99 08/02/17 04:00 98.1 68 18 158/70 (99) 98 08/02/17 01:16 98 Nasal Cannula 1.00 08/02/17 00:00 97.3 70 18 160/72 (101) 97 08/01/17 20:00 98.0 70 18 149/66 (93) 95 08/01/17 19:15 Nasal Cannula 1.00 08/01/17 16:41 97.9 73 17 169/79 (109) 96 08/01/17 15:57 96 Nasal Cannula 1.00 Result Diagram: 07/29/17 0515 08/01/17 0949 Other Results Laboratory Tests Test 07/31/17 07:55 08/01/17 09:49 Blood Urea Nitrogen 46 MG/DL 48 MG/DL Creatinine 1.44 MG/DL 1.58 MG/DL Random Glucose 304 MG/DL 381 MG/DL Calcium Level 9.0 MG/DL 9.0 MG/DL Magnesium Level 2.2 MG/DL 1.9 MG/DL Sodium Level 135 MEQ/L 133 MEQ/L Potassium Level 4.6 MEQ/L 4.7 MEQ/L Chloride Level 98 MEQ/L 97 MEQ/L Carbon Dioxide Level 27.0 MEQ/L 25.5 MEQ/L Anion Gap 10 MEQ/L 11 MEQ/L Estimat Glomerular Filtration Rate 34 ML/MIN 31 ML/MIN Imaging Last Impressions Chest CT 07/27/17 0000 Signed Impressions: Service Date/Time: Thursday, July 27, 2017 10:43 - CONCLUSION: Minimal stable changes lingula. Peribronchial thickening Hero Stringer MD FACR Chest X-Ray 07/26/17 7772 Signed Impressions: Service Date/Time: July 19:16 - CONCLUSION: No evidence of acute cardiopulmonary disease. Stanton Erickson MD Objective Remarks General: NAD, AAOx3 Chest: improved air movement Cardiac: Regular Abd: +BS, soft ND/NT Ext: No edema A/P Problem List: (1) COPD (chronic obstructive pulmonary disease) with acute bronchitis ICD Codes: J44.0 - Chronic obstructive pulmonary disease with acute lower respiratory infection; J20.9 - Acute bronchitis, unspecified Status: Acute Plan: COPD with acute bronchitis - Pt is an 87 y/o female with COPD, chronic diastolic CHF, HTN, severe aortic stenosis, diabetes, and CKD. - She presented to the ED on 07/26/17 with complaints of productive cough and SOB x 3 days. Pt lives at a local [facility] and reports that many residents have been ill recently. - Pt has a hx of COPD and in the past has been on Advair and Spiriva but has not taken these for quite some time. - CXR in the ED showed nothing acute. - Pt was started on Levaquin IV at admission and this has been continued. - Cont. Mucinex 600mg po BID and Claritin 10mg po daily - Supplemental oxygen as needed. - Pt with some wheezing this morning. She wants to try some IV steroids to see if this may help. Pt had a possible reaction to PO steroids previously but now states that she had hives with a Z-bia and NOT to steroids. - Solu-Medrol was started at 60mg BID and she tolerated this well. This was increased to 60mg Q6H on 07/28. Solu-Medrol was changed to 40mg Q8H on 07/31/17 - prednisone 30 PO BID (08/01) - Duonebs to Q4H and Q2H PRN - Budesonide nebs BID - Pt with some slight symptomatic improvement today, continue current course. - Levaquin stopped on 07/31 - Appreciate consult from Pulmonology - Of note, in 06/2017 pt was seen in the ED with gastroenteritis and had a CT Abd/pelvis which subsequently noted several mildly enlarged retroperitoneal para-aortic LN and a 1cm opacity in the anterior lower lateral left lung. CT thorax was recommended as an outpt. - CT Thorax (07/27/17) --> Minimal stable changes lingula. Peribronchial thickening. - Supportive care - Try to mobilize pt off her back as much as possible - IS - PT 7 days a week - DVT prophylaxis with SCDs - Anticipate continued hospitalization for another 1-2 days Chronic diastolic CHF - No overt signs of failure on exam. - BNP relatively low. - Continue home meds, pt takes Lasix 40mg once daily CKD, stage 3 - Renal indices slightly up today. Pt states that she has not been eating as well as she normally does here in the hospital - Pt was given 1L of NS on 07/29 - Lasix held as Cr increased to 1.52 on 07/30, repeat labs on 07/31 with Cr. 1.44, 1.58 (08/01) - Repeat BMP - Pt may need Lasix resumed - Encouraged oral intake Diabetes Mellitus - HA1c was 6.16 July 2017 - NovoLog SSI, increase to high dose - Accu checks - Pt also takes Tresiba 36units daily at home - Levemir titrated up to 15units BID on 07/29/17 but BS still running in the high 200-low 300s - Levemir increased to 20 units BID on 07/30 - Levemir increased to 25 units SQ BID 08/01 - Levemir increase to 30 units SQ BID 08/02 - Monitor BS levels, may need to titrate up with steroid hyperglycemia. steroids changed to Prednisone 08/01 will continue to monitor blood glucose HTN - Home meds continued, Atenolol 25mg po daily GERD - PPI PT recommending rehab at time of DC case management consulted to arrange SNF placement, possible DC to SNF tomorrow (2) CHF (congestive heart failure) ICD Codes: I50.9 - Heart failure, unspecified Status: Chronic (3) Diabetes ICD Codes: E11.9 - Type 2 diabetes mellitus without complications Status: Chronic (4) HTN (hypertension) ICD Codes: I10 - Essential (primary) hypertension Status: Chronic (5) GERD (gastroesophageal reflux disease) ICD Codes: K21.9 - Gastro-esophageal reflux disease without esophagitis Status: Chronic Assessment and Plan Patient examined. Assessment and plan formulated with Jasmine Rios PA-C. I agree with the above.p - improved air movement - still some wheezing which improved with cough - Pt has DM2. Blood sugar worsened with steroids. - Pt receiving levemir and SSI - anticipate d/c to SNF 08/03 on slow steroid taper. - Case d/w Pulm Med, Dr. Campbell, (08/02) Problem Qualifiers (1) CHF (congestive heart failure): (2) Diabetes: Qualified Codes: E11.21 - Type 2 diabetes mellitus with diabetic nephropathy; Z79.4 - correction (current) use of insulin (3) HTN (hypertension): Qualified Codes: I10 - Essential (primary) hypertension Jasmine Rios Aug 02, 2017 13:24 Yves Corona DO Aug 02, 2017 23:35
--- NOTE | 2017-08-02 15:48 | HHI.PR ---
Subjective Remarks 87 YOWF with COPD exac, DM Feels breathing better Weak Occ cough, no sp Did't sleep well Objective Vital Signs Vital Signs Date Time Temp Pulse Resp B/P (MAP) Pulse Ox O2 Delivery O2 Flow Rate FiO2 08/02/17 08:50 98 Nasal Cannula 2.00 08/02/17 08:00 97.6 76 18 159/72 (101) 99 08/02/17 04:00 98.1 68 18 158/70 (99) 98 08/02/17 01:16 98 Nasal Cannula 1.00 08/02/17 00:00 97.3 70 18 160/72 (101) 97 08/01/17 20:00 98.0 70 18 149/66 (93) 95 08/01/17 19:15 Nasal Cannula 1.00 08/01/17 16:41 97.9 73 17 169/79 (109) 96 08/01/17 15:57 96 Nasal Cannula 1.00 I/O 08/01/17 08/01/17 08/01/17 08/02/17 08/02/17 08/02/17 07:00 15:00 23:00 07:00 15:00 23:00 Intake Total 480 ml Output Total 1500 ml 1000 ml Balance -1500 ml 480 ml -1000 ml Intake Oral 480 ml Output Urine Total 1500 ml 1000 ml # Voids 2 # Bowel Movements 1 Result Diagram: 07/29/17 0515 08/01/17 0949 Objective Remarks GENERAL: Obese , elderly female, mild sob SKIN: Warm and dry. HEAD: Normocephalic. EYES: No scleral icterus. No injection or drainage. NECK: Supple, trachea midline. No JVD or lymphadenopathy. CARDIOVASCULAR: Regular rate and rhythm without murmurs, gallops, or rubs. RESPIRATORY: Breath sounds equal bilaterally. No accessory muscle use. GASTROINTESTINAL: Abdomen soft, non-tender, nondistended. MUSCULOSKELETAL: No cyanosis, + edema. BACK: Nontender without obvious deformity. No CVA tenderness. A/P Assessment and Plan COPD Exac DM HTN CHF Obesity Aortic stenosis PLAN: Aerosol nebs PO Steroids monitor BS Supplement 02 Duonebs q 4 hrs while awake DC plans for AM Taran Campbell MD Aug 02, 2017 15:48
[2017-08-02] MEDS: ATORVASTATIN 20 MG TAB PO SCH (21:55)
[2017-08-02] MEDS: TEMAZEPAM 15 MG CAP PO PRN (22:02)
[2017-08-03 00:23] VITALS: BP 142/66; PULSE 80; RESP 20; TEMP 97.6; O2SAT 96
[2017-08-03] MEDS: RESP: ALBUTEROL 2.5 MG/IPRATROPIUM 0.5 MG NEB (SCH) INH ×3 (03:38→15:08)
[2017-08-03 05:15] VITALS: BP 147/70; PULSE 79; RESP 20; TEMP 97.6; O2SAT 94
[2017-08-03] MEDS: ACETAMINOPHEN/HYDROcodone 325 MG/5 MG TAB PO PRN (07:27)
[2017-08-03] MEDS: SODIUM CHLORIDE 0.9% FLUSH 10 ML FLUSH IV FLUSH SCH (07:28)
[2017-08-03 08:00] VITALS: BP 136/60; PULSE 77; RESP 20; TEMP 97.5; O2SAT 95
[2017-08-03] MEDS: RESP: BUDESONIDE 0.5 MG/2 ML NEB NEB SCH (08:00)
[2017-08-03] MEDS: INSULIN DETEMIR 100 UNITS/ML VIAL SQ SCH (08:38)
[2017-08-03] MEDS: INSULIN ASPART SUPPLEMENTAL SCALE SQ SCH ×2 (08:38→13:08)
[2017-08-03] MEDS: guaiFENesin E.R. 600 MG TAB PO SCH (08:39)
[2017-08-03] MEDS: GABAPENTIN 300 MG CAP PO SCH (08:39)
[2017-08-03] MEDS: ATENOLOL 25 MG TAB PO SCH (08:39)
[2017-08-03] MEDS: LORATADINE 10 MG TAB PO SCH (08:39)
[2017-08-03] MEDS: POTASSIUM CHLORIDE 10 MEQ CAP PO SCH (08:39)
[2017-08-03] MEDS: CYANOCOBALAMIN 100 MCG TAB PO SCH (08:39)
[2017-08-03] MEDS: predniSONE 20 MG TAB PO SCH (08:40)
[2017-08-03] MEDS: ALLOPURINOL 100 MG TAB PO SCH (08:40)
[2017-08-03] MEDS: PANTOPRAZOLE SOD 20 MG DELAYED RELEASE TAB PO SCH (08:40)
[2017-08-03] MEDS: DOCUSATE SODIUM 100 MG CAP PO SCH (08:40)
[2017-08-03] MEDS: MAGNESIUM OXIDE 400 MG TAB PO SCH (08:40)
[2017-08-03] MEDS ORDERED: PRED10 PO (08:47)
[2017-08-03] MEDS ORDERED: Albuterol-Ipratropium Neb INH (08:47)
[2017-08-03] MEDS ORDERED: MAGN400T2 PO (08:47)
[2017-08-03] MEDS ORDERED: guaiFENesin ER PO (08:47)
--- NOTE | 2017-08-03 08:55 | HHI.DS ---
Discharge Summary Admission Date Jul 27, 2017 at 08:09 Discharge Date: Aug 03, 2017 Admitting Diagnosis acute COPD exacerbation (1) COPD (chronic obstructive pulmonary disease) with acute bronchitis Diagnosis: Principal ICD Codes: J44.0 - Chronic obstructive pulmonary disease with acute lower respiratory infection; J20.9 - Acute bronchitis, unspecified Status: Acute (2) CHF (congestive heart failure) Diagnosis: Secondary ICD Codes: I50.9 - Heart failure, unspecified Status: Chronic (3) Diabetes Diagnosis: Secondary ICD Codes: E11.9 - Type 2 diabetes mellitus without complications Status: Chronic (4) HTN (hypertension) Diagnosis: Secondary ICD Codes: I10 - Essential (primary) hypertension Status: Chronic (5) GERD (gastroesophageal reflux disease) Diagnosis: Secondary ICD Codes: K21.9 - Gastro-esophageal reflux disease without esophagitis Status: Chronic Consultants Dr. Campbell, Pulmonology Procedures none Brief History Pleasant 87 yo female with copd, DM, aortic stenosis and reported hx of CHF that presents to the ED for evaluation of shortness of breath and cold-like symptoms. Per patient she lives an [facility] what there has been a lot of sick people. 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 Per patient she does not know if anybody has been diagnosed with the flu but she states that she did got her flu shot in March 2017. Patient denies any chest pain. She states having some subjective fevers and chills (Tm 99.4). Hasn't seen by anybody for this, but came to ER after her niece advised her to do so as she was getting weaker and coughing more. Has not taken anything for this. Shortness of breath with exertion as well as while laying down. She has a history of kidney failure having had dialysis but has been in remission since 2008 and has not had any dialysis since that time. Per patient now she is able to urinate and has no issues with this. She states compliance with her medications at the [facility]. She denies any falls or injuries. No recent travel. No hemoptysis. Niece reports that phlegm has been yellow in color. CBC/BMP: 08/01/17 0949 Significant Findings Laboratory Tests Test 08/01/17 09:49 Blood Urea Nitrogen 48 MG/DL (7-18) Creatinine 1.58 MG/DL (0.50-1.00) Random Glucose 381 MG/DL (74-106) Sodium Level 133 MEQ/L (136-145) Chloride Level 97 MEQ/L (98-107) Estimat Glomerular Filtration Rate 31 ML/MIN (>89) Imaging Last Impressions Chest CT 07/27/17 0000 Signed Impressions: Service Date/Time: Thursday, July 27, 2017 10:43 - CONCLUSION: Minimal stable changes lingula. Peribronchial thickening Hero Srtinger MD FACR Chest X-Ray 07/26/17 1855 Signed Impressions: Service Date/Time: July 19:16 - CONCLUSION: No evidence of acute cardiopulmonary disease. Stanton Erickson MD PE at Discharge General: NAD, AAOx3 Chest: improved air movement Cardiac: Regular Abd: +BS, soft ND/NT Ext: No edema Hospital Course COPD with acute bronchitis - Pt is an 87 y/o female with COPD, chronic diastolic CHF, HTN, severe aortic stenosis, diabetes, and CKD. - She presented to the ED on 07/26/17 with complaints of productive cough and SOB x 3 days. Pt lives at a local [facility] and reports that many residents have been ill recently. - Pt has a hx of COPD and in the past has been on Advair and Spiriva but has not taken these for quite some time. - CXR in the ED showed nothing acute. - Pt was started on Levaquin IV at admission and this has been continued. - Cont. Mucinex 600mg po BID and Claritin 10mg po daily - Supplemental oxygen as needed. - Pt with some wheezing this morning. She wants to try some IV steroids to see if this may help. Pt had a possible reaction to PO steroids previously but now states that she had hives with a Z-bia and NOT to steroids. - Solu-Medrol was started at 60mg BID and she tolerated this well. This was increased to 60mg Q6H on 07/28. Solu-Medrol was changed to 40mg Q8H on 07/31/17 - prednisone 30 PO BID (08/01) with slow steroid taper at DC - Duonebs to Q4H and Q2H PRN - Budesonide nebs BID - Levaquin stopped on 07/31 - Appreciate consult from Pulmonology - Of note, in 06/2017 pt was seen in the ED with gastroenteritis and had a CT Abd/pelvis which subsequently noted several mildly enlarged retroperitoneal para-aortic LN and a 1cm opacity in the anterior lower lateral left lung. CT thorax was recommended as an outpt. - CT Thorax (07/27/17) --> Minimal stable changes lingula. Peribronchial thickening. - Supportive care - Try to mobilize pt off her back as much as possible - IS encouraged - PT 7 days a week - DVT prophylaxis with SCDs Chronic diastolic CHF - No overt signs of failure on exam. - BNP relatively low. - Continue home meds, pt takes Lasix 40mg once daily CKD, stage 3 - Renal indices slightly up today. Pt states that she has not been eating as well as she normally does here in the hospital - Pt was given 1L of NS on 07/29 - Lasix held as Cr increased to 1.52 on 07/30, repeat labs on 07/31 with Cr. 1.44, 1.58 (08/01) - Weekly BMP at SNF - Lasix resumed at DC - Encouraged oral intake Diabetes Mellitus - HA1c was 6.16 July 2017 - NovoLog SSI, increase to high dose - Accu checks - Pt also takes Tresiba 36units daily at home - Levemir titrated up to 15units BID on 07/29/17 but BS still running in the high 200-low 300s - Levemir increased to 20 units BID on 07/30 - Levemir increased to 25 units SQ BID 08/01 - Levemir increase to 30 units SQ BID 08/02 - Monitor BS levels, may need to titrate up with steroid hyperglycemia. steroids changed to Prednisone 08/01 will continue to monitor blood glucose HTN - Home meds continued, Atenolol 25mg po daily GERD - PPI PT recommending rehab at time of DC case management consulted to arrange SNF placement Pt Condition on Discharge: Fair Discharge Disposition: Discharge to SNF Discharge Instructions DIET: Follow Instructions for: Diabetic Diet Activities you can perform: Regular-No Restrictions Follow up Referrals: PCP Follow-up - [address] Matthews Pulmonology - 2 Weeks with Taran Campbell MD New Medications: Prednisone (Prednisone) 10 Mg Tab 10 MG PO DIRECTED for steroid taper, #35 TAB 0 Refills take 20 mg twice a day by mouth for 5 days, then take 10 mg twice a day by mouth for 5 days, then take 10 mg once a day by mouth for 5 days, then stop Budesonide Neb (Pulmicort Respules) 0.5 Mg/2 Ml Neb 0.5 MG NEB Q12HR NEB for COPD, #60 EACH 0 Refills Magnesium Oxide (Magnesium Oxide) 400 Mg Tab 400 MG PO Q12HR for supplement, #60 TAB 0 Refills [Albuterol-Ipratropium Neb] () 1 AMPULE NEBU 1 AMPULE INH Q4HR PRN for SOB/WHEEZING, #60 EA 0 Refills [guaiFENesin ER] () 600 MG TABCR 600 MG PO BID for expectorant, #60 TAB 0 Refills Continued Medications: Allopurinol (Allopurinol) 100 Mg Tab 100 MG PO DAILY for Gout, #30 TAB 0 Refills Atenolol (Atenolol) 25 Mg Tab 25 MG PO DAILY for Blood Pressure Management, #30 TAB Atorvastatin (Atorvastatin) 20 Mg Tab 20 MG PO HS for Cholesterol Management, #30 TAB 0 Refills Cholecalciferol (Vitamin D-1000) 1,000 Unit Tab 1000 UNITS PO DAILY for Nutritional Supplement, #1 BOTTLE 0 Refills Cyanocobalamin (B-12) 500 Mcg Subl 250 MCG SL DAILY for Nutritional Supplement, TAB.SL 0 Refills Docusate Sodium (Docusate Sodium) 100 Mg Cap 100 MG PO BID for Prevent Constipation, #60 CAP 0 Refills Furosemide (Lasix) 40 Mg Tab 40 MG PO BID, #60 TAB 0 Refills Gabapentin (Gabapentin) 300 Mg Cap 300 MG PO BID, #60 CAP 0 Refills Hydrocodone/Acetaminophen (Hydrocodone-Acetamin 5-325 mg) 5 Mg-325 Mg Tablet 1 TAB PO TID PRN for PAIN, #50 MG 0 Refills (This prescription has been renewed) Insulin Aspart Inj (Novolog Inj) 100 Unit/Ml Inj 1 UNITS SQ ACHS SLIDING SCALE for dm for 30 Days, INJECTION 0 Refills USE Butler medium dose sliding Insulin Degludec Inj (Tresiba Flextouch Pen Inj) 300 unit/3 ML Pen 36 UNITS SQ DAILY for Blood Sugar Management, #15 ML 0 Refills Nitroglycerin SL (Nitrostat SL) 0.4 Mg Subl 0.4 MG SL DIRECTED PRN for CHEST PAIN, #100 TAB.SL 0 Refills 1 tablet under the tongue as needed for chest pain. Repeat every 5 minutes for a total of 3 DOSES or call 911 if NO relief. Omeprazole (Omeprazole) 20 Mg Tab 20 MG PO BID, #30 TAB 0 Refills Ondansetron Odt (Zofran Odt) 4 Mg Tab 4 MG SL Q6HR PRN for Nausea/Vomiting, #20 TAB 0 Refills Potassium Chloride ER (Potassium Chloride ER) 10 Meq Cap 10 MEQ PO DAILY for Electrolyte Replacement, #30 CAP 0 Refills Temazepam (Temazepam) 15 Mg Cap 15 MG PO HS PRN for INSOMNIA, #30 CAP 0 Refills (This prescription has been renewed) Additional Information Patient examined. Assessment and plan formulated with Jasmine Rios PA-C. I agree with the above. Jasmine Rios Aug 03, 2017 08:55 Yves Corona DO Aug 07, 2017 23:06
[2017-08-03 09:47] LABS: HEMOGLOBIN 12.6 GM/DL (11.6-15.3); MEAN CELL VOLUME 88.7 FL (80.0-100.0); MEAN CORPUSCULAR HEMOGLOBIN 29.4 PG (27.0-34.0); MEAN CORPUSCULAR HGB CONC 33.1 % (32.0-36.0); MEAN PLATELET VOLUME 9.2 FL (7.0-11.0); PLATELET COUNT 167 TH/MM3 (150-450); RED BLOOD COUNT 4.29 MIL/MM3 (4.00-5.30); RED CELL DISTRIBUTION WIDTH 15.9 % (11.6-17.2); WHITE BLOOD COUNT 14.8 TH/MM3 (4.0-11.0)
[2017-08-03 10:10] LABS: BICARBONATE 25.4 MEQ/L (21.0-32.0); BLOOD UREA NITROGEN 42 MG/DL (7-18); CALCIUM 8.8 MG/DL (8.5-10.1); CHLORIDE 99 MEQ/L (98-107); CREATININE 1.27 MG/DL (0.50-1.00); GLOMERULAR FILTRATION RATE 40 ML/MIN (>89); GLUCOSE,RANDOM 240 MG/DL (74-106); SODIUM (NA) 135 MEQ/L (136-145)
--- NOTE | 2017-08-03 11:39 | HHI.PR ---
Subjective Remarks 87 YOWF with COPD exac, DM Feels breathing better Weak Occ cough, no sp Up in chair Weaned to RA Objective Vital Signs Vital Signs Date Time Temp Pulse Resp B/P (MAP) Pulse Ox O2 Delivery O2 Flow Rate FiO2 08/03/17 09:50 Nasal Cannula 1.00 08/03/17 05:15 97.6 79 20 147/70 (95) 94 08/03/17 00:23 97.6 80 20 142/66 (91) 96 08/02/17 21:04 97.4 78 20 131/62 (85) 94 08/02/17 16:22 98 Nasal Cannula 1.00 08/02/17 16:00 97.7 79 18 141/73 (95) 100 08/02/17 12:00 98.4 75 18 159/73 (101) 98 I/O 08/02/17 08/02/17 08/02/17 08/03/17 08/03/17 08/03/17 07:00 15:00 23:00 07:00 15:00 23:00 Intake Total 840 ml 480 ml Output Total 1000 ml 2200 ml Balance -1000 ml 840 ml -1720 ml Intake Oral 840 ml 480 ml Output Urine Total 1000 ml 2200 ml # Voids 4 # Bowel Movements 2 1 Result Diagram: 08/03/17 0815 08/03/17 0815 Objective Remarks GENERAL: Obese , elderly female, mild sob SKIN: Warm and dry. HEAD: Normocephalic. EYES: No scleral icterus. No injection or drainage. NECK: Supple, trachea midline. No JVD or lymphadenopathy. CARDIOVASCULAR: Regular rate and rhythm without murmurs, gallops, or rubs. RESPIRATORY: Breath sounds equal bilaterally. No accessory muscle use. GASTROINTESTINAL: Abdomen soft, non-tender, nondistended. MUSCULOSKELETAL: No cyanosis, + edema. BACK: Nontender without obvious deformity. No CVA tenderness. A/P Assessment and Plan COPD Exac DM HTN CHF Obesity Aortic stenosis PLAN: Aerosol nebs PO Steroids monitor BS Supplement 02 Duonebs q 4 hrs while awake DC plans for Signature Taran Campbell MD Aug 03, 2017 11:39
[2017-08-03 12:00] VITALS: BP 157/70; PULSE 82; RESP 20; TEMP 97.6; O2SAT 94
[2017-08-03] MEDS ORDERED: TEMA15CA PO (12:53)
[2017-08-03] MEDS ORDERED: HYDR-3516 PO (12:53)
[2017-08-03] MEDS ORDERED: PULM180I INH (12:59)
[2017-08-03] MEDS ORDERED: BUDE.5I NEB (14:01)
[2017-08-03 14:22] LABS: HEMOGLOBIN A1C 6.7 % (4.3-6.0)
[2017-08-03 15:08] VITALS: O2SAT 97
== END 2017-08-03 16:32 | DRG 191 ==
LOC: NEPE 18:14 → NEDA 21:58 → NEPGCP 23:31 → OBSVTOIN 07-27 08:09 → N04B 07-28 15:07
PROVIDERS: ADMIT Hospitalist; ATTEND Hospitalist
DX: J44.0 Chronic obstructive pulmonary disease with (acute) lower respiratory infection (principal); I13.0 Hypertensive heart and chronic kidney disease with heart failure and stage 1 through stage 4 chronic kidney disease, or unspecified chronic kidney disease; E11.21 Type 2 diabetes mellitus with diabetic nephropathy; I50.32 Chronic diastolic (congestive) heart failure; J20.9 Acute bronchitis, unspecified; J44.1 Chronic obstructive pulmonary disease with (acute) exacerbation; E11.22 Type 2 diabetes mellitus with diabetic chronic kidney disease; N18.3 Chronic kidney disease, stage 3 (moderate); K21.9 Gastro-esophageal reflux disease without esophagitis; I35.0 Nonrheumatic aortic (valve) stenosis; H35.30 Unspecified macular degeneration; E66.9 Obesity, unspecified; G89.29 Other chronic pain; E78.5 Hyperlipidemia, unspecified; Z79.4 Long term (current) use of insulin; Z68.34 Body mass index [BMI] 34.0-34.9, adult; M10.9 Gout, unspecified; Z88.6 Allergy status to analgesic agent; Z88.1 Allergy status to other antibiotic agents; Z88.8 Allergy status to other drugs, medicaments and biological substances
CPT/HCPCS: 71045; 71250; 80048; 80053; 82948; 83036; 83735; 83880; 85025; 85027; 85610; 85730; 87040; 93005; 94060; 94150; 94640; 94664; G0378; G8987-GP; G8988-GP; J1815; J1956; J2920; J2930; J7030; J7512; J7626